=== PATIENT | female | born 1965 | race Caucasian/White ===

== ENCOUNTER 2024-10-26 15:43 | Inpatient (IN) | payer OTHER, SELFPAY ==
[2024-10-26 10:49] VITALS: BP 115/82
--- NOTE | 2024-10-26 12:03 | ED.GENMED ---
History of Present Illness
General
Chief Complaint: Change in Mental Status
Source: patient and family
Exam Limitations: other (dev delay)
Time Seen by Provider: 10/26/24 11:27
Nursing documentation reviewed up to this point in time: agreed with
History of Present Illness
History of Present Illness:
see MDM
Past History
Past History
ED Past Medical History: Seizures, Other (minimal brain development from ) and Other (Uterine fibroids, ovarian cysts)
Social History
Tobacco: Non-smoker
Alcohol: None
Personal: Single
Living: with family
Phy Exam
Physical Exam
Physical Exam:
GENERAL: Alert , in no apparent distress, developmental delay, inappropriate language,
EYE: pupils equal and reactive pupils are equal round and reactive, I do not appreciate any obvious nystagmus
NECK: Supple
ENT: o/p clr, dry mouth.
CARDIAC: Regular rate and rhythm .
LUNGS: Clear breath sounds bilaterally, no acute respiratory distress, no wheezes/rales/rhonchi
ABDOMEN: Soft, without focal tenderness, no r/g, no cvat, normal bowel sounds
NEUROLOGICAL: Alert and oriented x 1, she does know her sisters and is awake and alert, no focal neuro deficits, she has developmental delay but is able to follow commands, there is no cranial nerve deficits and she is moving all extremities. She
does walk with a slightly antalgic gait and is slightly ataxic, seemingly with a limp on the left but she is not at all weak
SKIN: Warm and dry, skin intact.
MUSCULOSKELETAL: Full range of motion of the hips without discomfort, nontender on exam, no midline tenderness
PSYCH: Developmental delay,
Course
Orders/Labs/Results
Orders:
Orders
10/26/24 11:57
CT Head W/o Iv Contrast Urgent
Comment:
Reason For Exam: change in mental status; h/o dev delay
Straight cath- Treatment ONCE
Urinalysis Reflex To Culture Urgent
Hip, Left 2-3 Views [CR Hip - LT w/wo Pel 2-3 Vw*] Urgent
Comment:
Reason For Exam: left hip pain
Include a pelvis x-ray?: Yes
10/26/24 12:07
Lumbar Spine Complete, 4 View [CR Lumbar Spine Comp Min 4 Vw*] Urgent
Comment:
Reason For Exam: limping, pain
10/26/24 12:17
Acetaminophen Urgent
Comment: TYLENOL ADDED ON BY FLOOR 1:15PM 10-26-24
Complete Blood Count/With Diff Urgent
Comprehensive Metabolic Panel Urgent
Keppra (Levetiracetam) [S] Urgent
Monotest Urgent
Comment: MONO ADDED ON BY FLOOR 1:40PM 10-26-24
Valproic Acid Level [Depakane] Urgent
10/26/24 13:12
Ammonia Urgent
0.9% Sodium Chloride 1000 ml [Nss] 1,000 ml IV BOLUS
US Abdomen Complete/Upper Urgent
Comment:
Reason For Exam: elev LFTs, dev delay; probably depakote tox
10/26/24 13:13
Add On- LAB Urgent
Tests Added?: tylenol level
10/26/24 13:40
Add On- LAB Urgent
Tests Added?: mono
10/26/24 14:52
PTT Urgent
Prothrombin Time Urgent
Abnormal Lab Results
10/26/24
12:17
Plt Count 81 L 10^3/uL
(130-400)
MPV 11.5 H fL
(7.4-10.4)
Abs Immat Gran (auto) 0.1 H 10^3/uL
(0-0.05)
Absolute Monos (auto) 0.8 H 10^3/uL
(0.1-0.6)
Immature Gran % 1.9 H %
(0-0.5)
Neutrophils % 30.4 L %
(42.2-75.2)
Lymphocytes % 53.3 H %
(20.5-51.1)
Monocytes % 13.3 H %
(1.7-9.3)
Carbon Dioxide 31 H mmol/L
(22-30)
BUN 23 H mg/dl
(7-17)
Glucose 113 H mg/dl
(70-99)
Total Bilirubin 1.4 H mg/dl
(0.2-1.3)
AST 750 H* U/L
(14-36)
ALT 738 H* U/L
(0-35)
Alkaline Phosphatase 329 H U/L
(38-126)
Acetaminophen < 10 L ug/ml
(10-30)
10/26/24 12:17
10/26/24 12:17
Vital Signs
Initial and Last Documented VS:
Initial Vital Signs
Temp Pulse Resp BP Pulse Ox
37.0 C 84 16 115/82 97
10/26/24 10:49 10/26/24 10:49 10/26/24 10:49 10/26/24 10:49 10/26/24 10:49
Last Documented Vital Signs
Temp Pulse Resp BP Pulse Ox
37.0 C 80 16 115/82 96
10/26/24 10:49 10/26/24 12:19 10/26/24 10:49 10/26/24 10:49 10/26/24 12:19
MDM/Problems Addressed
MDM/Problems Addressed:
Note:
CHIEF COMPLAINT(S)
Difficulty with mobility and changes in behavior.
HISTORY OF PRESENT ILLNESS
The patient is a female with a longstanding unspecified mental retardation since , managed under the care of a neurologist, Dr. Garcia, for 27 years, h/o epilepsy maintained on depakote and keppra. The familys main concern is a recent
exacerbation of symptoms related to mobility and behavior. On a recent visit to the neurologist for a routine check-up, it was observed that the patients hands exhibited increased tremors, prompting an adjustment in her Depakote (valproic acid)
dosage, which had been stable for many years.
The original dosage regimen was 500 mg in the morning, 250 in the afternoon, 250 mg at night. The neurologist increased the dosage to 2,000 mg per day�500 mg every morning, noon, and night dose starting around a week ago due to observed tremors. The
patient tolerated the new dosage for approximately two days, after which she exhibited excessive somnolence, significant difficulty in getting out of bed, changes in gait, and complaints of hip pain. Given these developments, the family adjusted the
dosage back to the previous regimen, which partially alleviated the excessive drowsiness but the mobility issues persisted.
Furthermore, the family reports that the patient has been restless at night and experienced an exacerbation in her urinary incontinence history, which was not previously prominent. She also has a prior history of hip issues diagnosed as arthritis
roughly six to seven years ago, for which she was given an anti-inflammatory.
Patient has not had any access to excess Depakote or Tylenol. She has not had any belly pain, fever or vomiting. She has not had any trauma
PAST MEDICAL AND SURGICAL HISTORY
- Unspecified mental retardation since .
- Seizures (formerly managed under neurologist care).
- Arthritis diagnosed in the hip around six to seven years ago.
CHRONIC MEDICAL CONDITIONS SIGNIFICANTLY AFFECTING CARE
- Seizure history managed with Depakote.
- Longstanding mental retardation influencing care management and decision-making.
SOCIAL DETERMINANTS AFFECTING HEALTH
- Patients mother has her own health conditions, adding stress to family caregiving dynamics.
MEDICATIONS
- Depakote (valproic acid): Previously 1,250 mg/day, temporarily increased to 2,000 mg/day, then reverted to 1,250 mg/day. Dosage transiently altered due to adverse effects of excessive sleepiness and altered mobility.
PHYSICAL EXAM
- Neurological assessment: Pupils checked; speech reportedly unchanged. Patient demonstrates difficulty with coordination�lowered ability to ambulate independently.
- Musculoskeletal: Complains of pain during hip mobilization, previously high tolerance noted.
- Observed behavior and responsiveness: Alert but significant changes noted in recent behavior as reported by the family. Nursing notes reviewed and vital signs reviewed.
PROBLEM LIST
Acute:
- Altered mental status likely secondary to medication adjustment.
- Mobility and gait disturbance.
- Behavioral changes.
Chronic:
- Unspecified mental retardation.
- Seizure disorder.
- Hip pain possibly due to arthritis.
PLAN
- Obtain urinalysis and culture to rule out urinary tract infection due to urinary symptoms.
- Bloodwork to check serum Depakote level and assess for acute changes in other parameters.
- Consider Pelvic CT scan to rule out possible structural issues contributing to hip pain.
- Proceed with head CT scan to evaluate neurological status further, as recommended by the family doctor considering potential stroke symptoms.
- Monitor mobility and reassess dosage adjustments of Depakote.
DIFFERENTIAL DIAGNOSIS
The Differential Diagnosis includes, in no particular order and is not limited to:
1. Adverse effect from medication adjustment.
2. Urinary tract infection.
3. Osteoarthritis flare.
4. Neurological condition or progression.
5. Stroke.
6. Medication withdrawal or toxicity.
7. Hypothyroidism.
8. Sleep disorder.
9. Frailty or deconditioning due to chronic illness.
10. Pain-related immobility or behavioral changes.
CARE-UPDATE
10/26/24 - 13:30
Patient has been experiencing increased sleepiness, difficulty walking, and confusion, likely due to elevated Depakote levels following a recent dosage increase. Liver enzymes are elevated, suggestive of Depakote toxicity, causing transient liver
dysfunction and contributing to confusion symptoms. A Tylenol level is to be checked to rule out accidental overdose. An ultrasound of the liver and gallbladder will be performed to exclude obstruction or infection. The patient will be admitted for
monitoring and supportive care, including the insertion of an IV line by the IV team. Depakote will be stopped, and neurology will be consulted for seizure management. The patient requires close observation, and arrangements are being discussed for
someone to stay with her during hospitalization. Further diagnostics and monitoring of medication levels such as Keppra will be conducted to finalize the treatment plan.
CARE-UPDATE
10/26/24 - 15:05
The patient is experiencing challenges with IV access and will require ultrasound guidance for successful placement. She appears dehydrated and has been allowed to consume clear liquids. Her current Depakote level is therapeutic, but recent
increased dosage could have previously elevated the levels, potentially causing temporary liver injuries and changes in mental status. Ultrasound did not show that she does have cholelithiasis without evidence of cholecystitis or
choledocholithiasis. I can suppose a working diagnosis could have been transient choledocholithiasis, but for now the patient does not have any signs of ascending cholangitis and we will hold on antibiotics. It will be important to trend the LFTs
to see if they are improving. A working diagnosis is still that the increase in Depakote has caused some liver toxicity.
A CT scan of her head showed enlarged ventricles, but this is consistent with her typical development, and there is no evidence of a stroke
She will still need a UA to rule out a UTI however we will need to straight catheter for that and it is very unlikely based on what else is going on that she would also have a UTI.
Admission to the hospital is recommended for continued monitoring and evaluation by a multidisciplinary team, including potential consultation with gastroenterology for the liver and gallbladder. It�s noted to avoid administering Ativan due to a
history of adverse reactions.
*Pulse Oximetry
SaO2: 97
Oxygen Mode of Delivery: Room air
Patient hypoxic: no
*Critical Care Note
Total Time (30-74mins, 75-104mins- exclusive of procedures): Not Applicable
ED Attending Note
-
Portions of this chart may have been created with voice recognition software.� Occasional wrong word or��sound alike� substitutions may have occurred due to the inherent limitations of voice recognition software.
Discharge Plan
Departure
Patient Disposition: Admit
Date of Disposition: 10/26/24
Time of Disposition: 14:46
Admit to: Telemetry
Presentation/result/management discussed w/ accepting MD/DO: Hospitalist
Condition: Fair
Covid-19: Not Applicable
Discharge Problem:
Transaminitis, depakote toxicity
Prescriptions:
No Action
divalproex 250 mg Tablet Extended Release 24 Hr
250 mg PO DAILY@1200
divalproex 250 mg Tablet,Delayed Release (Dr/Ec)
500 mg PO BID
cyanocobalamin (vitamin B-12) 1,000 mcg Tablet
1,000 mcg PO DAILY
Theragen Tablet
1 tab PO DAILY
levetiracetam [Keppra] 250 mg Tablet
250 mg PO BID
cholecalciferol (vitamin D3) [Vitamin D3] 25 mcg (1,000 unit) Capsule
25 mcg PO DAILY
rosuvastatin [Crestor] 40 mg Tablet
40 mg PO QPM
cinnamon bark [Cinnamon] 500 mg Capsule
500 mg PO DAILY
omega 6-lvu-pcd-fish oil [Fish Oil] 1,000 (120-180) mg Capsule
1 cap PO DAILY
coQ10 (ubiquinol) 100 mg Capsule
100 mg PO DAILY
acetaminophen [Tylenol] 325 mg Tablet
650 mg PO Q6HPRN PRN (Reason: mild pain)
Referrals:
Ira Grayson PA [Family Provider, Family Practice]
Discharge Date and Time
Print Language: LUX[place]GISH
[2024-10-26 12:18] VITALS: BMI 31.1
[2024-10-26 12:47] LABS: Hematocrit 42.3 % (37.0-47.0); Hemoglobin 14.1 g/dL (12.0-16.0); Mean Corp Hgb Conc. 33.3 g/dL (33.0-37.0); Mean Corpuscular Volume 87.9 fL (81.0-99.0); Red Cell Dist. Width 13.0 % (11.5-14.5)
[2024-10-26 12:59] LABS: ALT (SGPT) 738 U/L (0-35); Albumin 4.5 g/dl (3.5-5.0); Alkaline Phosphatase 329 U/L (38-126); Blood Urea Nitrogen 23 mg/dl (7-17); Calcium 9.6 mg/dl (8.4-10.2); Carbon Dioxide 31 mmol/L (22-30); Chloride 101 mmol/L (98-107); Estimated Creatinine Clearance 71 ml/min; Glucose 113 mg/dl (70-99); Potassium 3.9 mmol/L (3.5-5.1); Sodium 141 mmol/L (135-145); Total Protein 7.9 g/dl (6.3-8.2); eGFR > 60.00
[2024-10-26 13:09] LABS: Nucleated Red Blood Cells % 0 %; Platelet Count 81 10^3/uL (130-400)
[2024-10-26 13:14] LABS: Depakane 112.0 ug/ml (50.0-120.0)
[2024-10-26 13:25] LABS: AST (SGOT) 750 U/L (14-36)
[2024-10-26 13:35] LABS: Acetaminophen < 10 ug/ml (10-30)
[2024-10-26 15:14] LABS: INR 1.00; PT 13.7 Sec (11.4-14.6)
--- NOTE | 2024-10-26 15:14 | HPS.HSE ---
Family Physician
-
Family Physician: Ira Grayson
Chief Complaint
-
Changing mental status and behavior
History of Present Illness
HPI: 59-year-old female, past medical history of developmental mental delay, seizure disorder, presented with altered mental status since increase of her Depakote dose about 10 days ago [employer].
According to sisters at bedside, Depakote dose was increased by outpatient neurologist due to hand tremors. The patient sees neurologist from [place].
Since the increase of her Depakote, the patient first became more somnolent and lethargic (for about 3 days), then she became agitated and restless.
Medical History
Past Medical History
Past Medical History: Reports Other
Additional Past Medical History:
developmental delay,
seizure disorder,
Past Surgical History: Reports Other
Additional Past Surgical History:
wrist surgery in the distant past
Social History
Tobacco: Non-smoker
Alcohol: None
Living: With Family
Family History
Family History: Not pertinent
Allergies / Home Medications
Allergies reflects when Allergies were last updated in [facility].
Home Medications with original date entered in [facility]
Allergy/Medication List:
Allergies
Allergy/AdvReac Type Severity Reaction Status Date / Time
lorazepam (From Ativan) Allergy Pharmacy Verified 10/26/24 15:05
to Review
Home Medications
divalproex 250 mg tablet,extended release 24 hr 250 mg PO DAILY@1200 11/07/15
acetaminophen 325 mg tablet (Tylenol) 650 mg PO Q6HPRN PRN mild pain 10/26/24
cholecalciferol (vitamin D3) 25 mcg (1,000 unit) capsule (Vitamin D3) 25 mcg PO DAILY 10/26/24
cinnamon bark 500 mg capsule (Cinnamon) 500 mg PO DAILY 10/26/24
coQ10 (ubiquinol) 100 mg capsule 100 mg PO DAILY 10/26/24
cyanocobalamin (vitamin B-12) 1,000 mcg tablet 1,000 mcg PO DAILY 10/26/24
divalproex 250 mg tablet,delayed release 500 mg PO BID 10/26/24
levetiracetam 250 mg tablet (Keppra) 250 mg PO BID 10/26/24
omega 2-ymn-xtn-fish oil 1,000 mg (120 mg-180 mg) capsule (Fish Oil) 1 cap PO DAILY 10/26/24
rosuvastatin 40 mg tablet (Crestor) 40 mg PO QPM 10/26/24
therapeutic multivitamin 1 tab PO DAILY 10/26/24
Review of Systems
-
Unable to obtain full review of systems at this time due to: Other (Developmental delay)
Physical Exam
Vital Signs
Vital Signs
Temp Pulse Resp BP Pulse Ox
37.0 C 80 16 115/82 96
10/26/24 10:49 10/26/24 12:19 10/26/24 10:49 10/26/24 10:49 10/26/24 12:19
Physical Exam
General: Well Nourished, No Apparent Distress, Comfortable, Conversant and Appears Chronically Ill
HEENT: NormoCephalic, Moist mucous membranes and Atraumatic
Respiratory: Clear and Non Labored Respirations; No Accessory Resp Muscle Use
Cardiac: S1/S2 and Regular Rhythm; No Murmur or Rub
GI: Soft, Non Tender, Non Distended and Normal Bowel Sounds; No Organomegaly
Rectal: Deferred by Provider
Musculoskeletal: No Clubbing, No Cyanosis and No Edema
Skin: No Rash
Neuro: Awake
Psych: Calm; No Intact Judgment/Insight
Laboratory Results
-
10/26/24 12:17
10/26/24 12:17
Laboratory Results
Total Bilirubin 1.4 mg/dl (0.2-1.3) H 10/26/24 12:17
AST 750 U/L (14-36) H* 10/26/24 12:17
ALT 738 U/L (0-35) H* 10/26/24 12:17
Alkaline Phosphatase 329 U/L (38-126) H 10/26/24 12:17
Data Reviewed
-
Ultrasound: Report Reviewed by me
Lab Data: Labs Reviewed by me
Impression/Plan
-
HPI: 59-year-old female, past medical history of developmental mental delay, seizure disorder, presented with altered mental status since increase of her Depakote dose about 10 days ago [employer].
According to sisters at bedside, Depakote dose was increased by outpatient neurologist due to hand tremors. The patient sees neurologist from [place].
Since the increase of her Depakote, the patient first became more somnolent and lethargic (for about 3 days), then she became agitated and restless.
In the ER, patient was noted to be restless. Her LFT was noted to be elevated (AST ALT in the 700s), and platelet decreased at 80. Her Depakote level was at 112.
A/P:
# Acute toxic metabolic encephalopathy, concern for Depakote side effect
# Transaminitis, likely due to Depakote side effect
# Thrombocytopenia, likely due to Depakote side effect
Depakote level at 112 on admission
Monitor LFT, avoid hepatotoxic agent such as Tylenol and Crestor
Abd US: Cholelithiasis. No sonographic findings to suggest acute cholecystitis. No evidence for biliary ductal dilation.
Continue to trend platelet count
Neuro consult for Depakote recommendation
# History of seizure disorder
For now, continue Keppra
Follow Keppra level
Hold Depakote
Neuro consult
# Developmental delay
Patient is awake, not orientated
Monitor mood during hospital stay
DVT prophylaxis: Lovenox SQ
Full code
[2024-10-26 15:15] LABS: APTT 26.7 Sec (23.4-35.0)
[2024-10-26] MEDS: NSS 1000 IV (15:35)
--- NOTE | 2024-10-26 15:37 | CON.NEURO ---
Addendum entered and electronically signed by Kenneth Serra MD 10/26/24 16:30:
I reviewed lab results and CAT scan of the head results
Impressions: Change in mental status due to toxic metabolic encephalopathy
Recommendations:
Discontinue levetiracetam due to the possibility of agitation caused by that medication
Replace levetiracetam with brivaracetam 100 mg twice a day
Discontinue valproic acid due to elevated liver function testing
Follow valproic acid levels
Supportive care
No indication for EEG at this time
No indication for additional neuroimaging at this time
Will follow
Original Note:
Consultation
Order
Date of Consultation: 10/26/24
Requesting Provider: Hospitalists
Reason for Consult: Agitation
Subjective/Objective
Subjective Data
Date of Service: October 26, 2024
Unknown-Handed
Patient [facility] after [facility] after the patient had a worsening in mood. The patient reportedly began having generalized
tonic-clonic seizures at menarche (age 16) with her last seizure in 2014 at which time she experienced menopause. Patient reportedly has not had any auras or other events since that time. Reportedly her EEG however is described as abnormal in a
fashion which suggests she would benefit from continued antiseizure medications. The patient previously has utilized valproic acid for the last approximately 30 years, and in the past was exposed to carbamazepine as well as current medication
levetiracetam. Patient previously was advised that the goal for treatment would be eventually to discontinue valproic acid and instead have the patient utilize levetiracetam as monotherapy. When last evaluated by her outpatient neurologist, she
was found to have a tremor leading to an increase in the dosage of her valproic acid. This then led to a sense of agitation especially after 3 days of increased dosing. They were then advised to decrease the dosing by 500 mg which did not change
the patient's agitation and rizwana. As the patient remained manic, it was advised by her outpatient neurologist that she present to this hospital's emergency department.
The patient herself is a limited historian and history is obtained after review of the patient's medical records, discussion with her siblings who are at bedside, and with professional medical care providers.
Objective Data
Vital Signs
Temp Pulse Resp BP Pulse Ox
37.0 C 80 16 115/82 96
10/26/24 10:49 10/26/24 12:19 10/26/24 10:49 10/26/24 10:49 10/26/24 12:19
Lab Results
10/26/24 12:17
10/26/24 12:17
PT 13.7 Sec (11.4-14.6) 10/26/24 14:52
INR 1.00 10/26/24 14:52
APTT 26.7 Sec (23.4-35.0) 10/26/24 14:52
Sodium 141 mmol/L (135-145) 10/26/24 12:17
Potassium 3.9 mmol/L (3.5-5.1) 10/26/24 12:17
BUN 23 mg/dl (7-17) H 10/26/24 12:17
Glucose 113 mg/dl (70-99) H 10/26/24 12:17
Calcium 9.6 mg/dl (8.4-10.2) 10/26/24 12:17
Patient Allergies
lorazepam (From Ativan) Allergy (Verified 10/26/24 15:05)
Pharmacy to Review
Review of Systems
-
Unable to obtain full review of systems at this time due to: Other (Intellectual inability)
History Source: Patient
All other systems: Reviewed and negative
Neuro: Negative Dizzy or Headache
Physical Exam
-
General: No Apparent Distress and Appears Stated Age
Eyes: Able to visualize OU, Round OU, Parrott Conjunctivae and No Ptosis
HEENT: Anicteric and Moist Mucous Membranes
Neck: Full Range of Motion
Respiratory: No Dyspnea
Cardiac: No JVD
GI: Non-distended
Skin: Unremarkable
Extremities: No Clubbing, No Cyanosis and No Edema
Psych: Negative Intact Judgement/Insight
Extended Neurological Exam
Mood & Affect: Other (Mildly impulsive, continuously speaking)
Attention Span & Concentration: Awake, Alert, Interactive (Intermittently interactive and at times refusing examiners requests) and Other (Mild difficulty with single step requests due to inability to maintain activity)
Memory: Reduced (For recall of month and year as well as location) and Unable to Recall Personal History
Tremor: Hand Tremor Absent and Head Tremor Absent
Involuntary Movement: None
Speech: Quality Unremarkable and Mildly Reduced Output
Cranial Nerve II: Left Eye: Pupillary Reactivity Unremarkable, Pupillary Size Unremarkable and Visual Birch Grossly Intact
Cranial Nerve II: Right Eye: Pupillary Reactivity Unremarkable, Pupillary Size Unremarkable and Visual Birch Grossly Intact
Cranial Nerves III, IV, : Extraocular Movement: Grossly Intact
Cranial Nerve V: Facial Sensation: Unable to Assess
Cranial Nerve VII: Facial Symmetry: Normal Facial Symmetry
Cranial Nerve VIII: Hearing: Unremarkable Hearing to Normal Conversational Volume
Cranial Nerves IX, X: Palate Movement: Palate Elevation Symmetric
Cranial Nerve XI: Shoulder Shrug: Unremarkable
Cranial Nerve XII: Tongue Protusion: Midline
Muscle Strength, Overall: Full Throughout
Muscle Bulk & Tone: Bulk Unremarkable and Tone Unremarkable
Pronator Drift: Unable to Assess
Deep Tendon Reflexes: Trace Throughout
Cold Sensation: Unable to Assess
Vibration Sensation: Unable to Assess
Touch Sensation: Unremarkable
Coordination: Reaches for Objects without Difficulty
Babinski Sign: Absent Bilaterally
Gait & Station: Wide Based
Data Reviewed
-
Labs: Report Reviewed
Reviewed with: Physician, Patient and Family
Old Records: Summarized
Medications
-
Home Medications
�Medication �Instructions �Recorded
divalproex 250 mg tablet,extended 250 mg PO DAILY@1200 11/07/15
release 24 hr
acetaminophen 325 mg tablet 650 mg PO Q6HPRN PRN mild pain 10/26/24
(Tylenol)
cholecalciferol (vitamin D3) 25 25 mcg PO DAILY 10/26/24
mcg (1,000 unit) capsule (Vitamin
D3)
cinnamon bark 500 mg capsule 500 mg PO DAILY 10/26/24
(Cinnamon)
coQ10 (ubiquinol) 100 mg capsule 100 mg PO DAILY 10/26/24
cyanocobalamin (vitamin B-12) 1,000 mcg PO DAILY 10/26/24
1,000 mcg tablet
divalproex 250 mg tablet,delayed 500 mg PO BID 10/26/24
release
levetiracetam 250 mg tablet 250 mg PO BID 10/26/24
(Keppra)
omega 5-vsq-pyz-fish oil 1,000 mg 1 cap PO DAILY 10/26/24
(120 mg-180 mg) capsule (Fish Oil)
rosuvastatin 40 mg tablet (Crestor) 40 mg PO QPM 10/26/24
therapeutic multivitamin 1 tab PO DAILY 10/26/24
Past History
Past History
ED Past Medical History: Seizures (last 2014), Other (minimal brain development from ) and Other (Uterine fibroids, ovarian cysts)
Social History
Tobacco: Non-smoker
Alcohol: None
Personal: Single
Living: with family
[2024-10-26 16:01] LABS: Ammonia 23 umol/L (9-30)
[2024-10-26 17:07] VITALS: BP 157/75
[2024-10-26 17:44] VITALS: BMI 29.9
[2024-10-26] MEDS: BRIVIACT 100 MG IV (20:39)
[2024-10-26] MEDS: MOTRIN 200 MG PO (21:26)
[2024-10-26] MEDS: BENADRYL 25 MG PO (21:26)
[2024-10-26 23:08] VITALS: BP 146/71
[2024-10-27] MEDS: SENOKOT-S 1 TABLET PO ×2 (01:40→08:59)
[2024-10-27] MEDS: MOTRIN 200 MG PO (01:40)
[2024-10-27 07:13] VITALS: BP 141/74
[2024-10-27 07:39] LABS: Hematocrit 39.1 % (37.0-47.0); Hemoglobin 13.0 g/dL (12.0-16.0); Mean Corp Hgb Conc. 33.2 g/dL (33.0-37.0); Mean Corpuscular Volume 88.1 fL (81.0-99.0); Platelet Count 73 10^3/uL (130-400); Red Cell Dist. Width 13.3 % (11.5-14.5)
[2024-10-27 08:01] LABS: ALT (SGPT) 599 U/L (0-35); AST (SGOT) 485 U/L (14-36); Albumin 3.9 g/dl (3.5-5.0); Alkaline Phosphatase 291 U/L (38-126); Blood Urea Nitrogen 20 mg/dl (7-17); Calcium 9.3 mg/dl (8.4-10.2); Carbon Dioxide 31 mmol/L (22-30); Chloride 101 mmol/L (98-107); Estimated Creatinine Clearance 93 ml/min; Glucose 134 mg/dl (70-99); Magnesium 1.9 mg/dl (1.6-2.3); Potassium 4.4 mmol/L (3.5-5.1); Sodium 138 mmol/L (135-145); Total Protein 7.1 g/dl (6.3-8.2); eGFR > 60.00
[2024-10-27] MEDS: BRIVIACT 100 MG IV (08:41)
--- NOTE | 2024-10-27 09:50 | W.PN.NEURO.1 ---
Today's Communication / Plan
-
Discontinued levetiracetam due to the possibility of agitation caused by that medication
Replaced levetiracetam with brivaracetam 100 mg twice a day
Discontinued valproic acid due to elevated liver function testing
Follow valproic acid levels
Neuro Assessment/Plan
Assessment
Impressions: Change in mental status due to toxic metabolic encephalopathy
Plan
Discontinued levetiracetam due to the possibility of agitation caused by that medication
Replaced levetiracetam with brivaracetam 100 mg twice a day
Discontinued valproic acid due to elevated liver function testing
Follow valproic acid levels
No indication for EEG at this time
No indication for additional neuroimaging at this time
Will follow as needed. Patient to return to usual outpatient neurologist
Subjective/Objective
Subjective Data
Date of Service: October 27, 2024
Sleepy
Objective Data
Vital Signs
Temp Pulse Resp BP Pulse Ox
36.6 C 71 16 141/74 94
10/27/24 07:13 10/27/24 07:13 10/27/24 07:13 10/27/24 07:13 10/27/24 07:13
Lab Results
10/27/24 07:02
10/27/24 07:02
PT 13.7 Sec (11.4-14.6) 10/26/24 14:52
INR 1.00 10/26/24 14:52
APTT 26.7 Sec (23.4-35.0) 10/26/24 14:52
Sodium 138 mmol/L (135-145) 10/27/24 07:02
Potassium 4.4 mmol/L (3.5-5.1) 10/27/24 07:02
BUN 20 mg/dl (7-17) H 10/27/24 07:02
Glucose 134 mg/dl (70-99) H 10/27/24 07:02
Calcium 9.3 mg/dl (8.4-10.2) 10/27/24 07:02
Patient Allergies
lorazepam (From Ativan) Allergy (Verified 10/26/24 17:38)
'severe behavioral changes'
Review of Systems
-
Unable to obtain full review of systems at this time due to: Other (Intellectual disab)
History Source: Patient and Family
All other systems: Reviewed and negative
Neuro: Negative Dizzy or Headache
Physical Exam
-
General: No Apparent Distress and Appears Stated Age
Eyes: Round OU, Neal Conjunctivae and No Ptosis
HEENT: Anicteric and Moist Mucous Membranes
Neck: Full Range of Motion
Respiratory: No Dyspnea
Cardiac: No JVD
GI: Non-distended
Skin: Unremarkable
Extremities: No Clubbing, No Cyanosis and No Edema
Psych: Negative Intact Judgement/Insight
Extended Neurological Exam
Mood & Affect: Mood Unremarkable and Affect Unremarkable
Attention Span & Concentration: Awake, Alert and Interactive
Memory: Unable to Recall (Month or year) and Unable to Recall Personal History
Tremor: Hand Tremor Absent and Head Tremor Absent
Speech: Quantity Unremarkable; Negative Quality Unremarkable (Mildly thick)
Cranial Nerve II: Left Eye: Pupillary Size Unremarkable and Visual Birch Grossly Intact
Cranial Nerve II: Right Eye: Pupillary Size Unremarkable and Visual Birch Grossly Intact
Cranial Nerves III, IV, : Extraocular Movement: Grossly Intact
Cranial Nerve VII: Facial Symmetry: Normal Facial Symmetry
Cranial Nerve VIII: Hearing: Unremarkable Hearing to Normal Conversational Volume
Cranial Nerve XI: Shoulder Shrug: Unremarkable
Muscle Strength, Overall: Full in Upper Extremities
Muscle Bulk & Tone: Bulk Unremarkable and Tone Unremarkable
Pronator Drift: No Drift in Upper Extremities
Touch Sensation: Unremarkable
Coordination: Aakbbu-[id number] Testing Unremarkable
Past History
Past History
ED Past Medical History: Seizures (last 2014), Other (minimal brain development from ) and Other (Uterine fibroids, ovarian cysts)
Social History
Tobacco: Non-smoker
Alcohol: None
Personal: Single
Living: with family
Medications
-
Medications:
Generic Name Dose Route Start Last Admin
Trade Name Freq PRN Reason Stop Dose Admin
Bisacodyl 10 mg 10/26/24 17:37
Bisacodyl 10 Mg Rectal Suppository RECTAL 11/23/24 17:36
[id number] PRN
constipation
Brivaracetam 100 mg 10/26/24 20:00 10/27/24 08:41
Brivaracetam (10 Mg/Ml) 5 Ml Vial IV 11/09/24 19:59 100 mg
BID MEGAN Administration
Diphenhydramine HCl 25 mg 10/26/24 20:56 10/26/24 21:26
Diphenhydramine 25 Mg Capsule PO 11/23/24 20:55 25 mg
HSPRN PRN Administration
agitation/sleep
Ibuprofen 200 mg 10/26/24 20:47 10/27/24 01:40
Ibuprofen 200 Mg Tablet PO 11/23/24 20:46 200 mg
Q4HPRN PRN Administration
mod-severe pain
Ondansetron HCl 4 mg 10/26/24 17:37
Ondansetron 4 Mg/2 Ml Vial IV 11/23/24 17:36
Q6HPRN PRN
nausea and vomiting
Polyethylene Glycol 17 grams 10/26/24 17:37
Polyethylene Glycol Powder 17 Grams Packet PO 11/23/24 17:36
DAILYPRN PRN
constipation
Senna/Docusate Sodium 1 tablet 10/26/24 17:37 10/27/24 08:59
Docusate W/Senna (Bety-Colace) Tablet PO 11/23/24 17:36 1 tablet
BIDPRN PRN Administration
constipation
Sodium Chloride 0 flush 10/26/24 17:00
Sodium Chloride 0.9% (Flush) Syringe IV 11/23/24 16:59
PER PROTOCOL MEGAN
--- NOTE | 2024-10-27 12:36 | W.PN.HOSP.TC ---
Today's Communication/Plan
-
see A/P
Assessment / Plan
Assessment / Plan
HPI: 59-year-old female, past medical history of developmental mental delay, seizure disorder, presented with altered mental status since increase of her Depakote dose about 10 days ago [employer].
According to sisters at bedside, Depakote dose was increased by outpatient neurologist due to hand tremors. The patient sees neurologist from [place].
Since the increase of her Depakote, the patient first became more somnolent and lethargic (for about 3 days), then she became agitated and restless.
In the ER, patient was noted to be restless. Her LFT was noted to be elevated (AST ALT in the 700s), and platelet decreased at 80. Her Depakote level was at 112.
A/P:
# Acute toxic metabolic encephalopathy, concern for Depakote side effect
# Transaminitis, likely due to Depakote side effect
# Thrombocytopenia, likely due to Depakote side effect
Depakote level at 112 on admission
Monitor LFT, avoid hepatotoxic agent such as Tylenol and Crestor. Cont to monitor LFT outpt
Abd US: Cholelithiasis. No sonographic findings to suggest acute cholecystitis. No evidence for biliary ductal dilation.
Continue to trend platelet count
Appreciate Neuro input, discontinue levetiracetam due to the possibility of agitation caused by that medication, replace levetiracetam with brivaracetam 100 mg twice a day,
Discontinued valproic acid due to elevated liver function testing
# History of seizure disorder
See above
off valproic acid and Keppra,
Check repeat Valproic level outpt , script provided
Now on brivaracetam 100 mg twice a day
# Developmental delay
Patient is awake, not orientated
Monitor mood during hospital stay
DVT prophylaxis: Lovenox SQ
Full code
DW Neuro
DW sister at bedside
Anticipated Discharge: Today
Subjective/Interval History
-
Date of Service: October 27, 2024
Objective Data
-
Labs:
Laboratory Results
10/27/24
07:02
WBC 7.1
Hgb 13.0
Hct 39.1
Plt Count 73 L
Sodium 138
Potassium 4.4
Chloride 101
Carbon Dioxide 31 H
BUN 20 H
Creatinine 0.7
Glucose 134 H
Calcium 9.3
Total Bilirubin 1.7 H
AST 485 H
ALT 599 H*
Alkaline Phosphatase 291 H
Vital Signs:
Vital Signs
Temp Pulse Resp BP Pulse Ox
36.6 C 71 16 141/74 94
10/27/24 07:13 10/27/24 07:13 10/27/24 07:13 10/27/24 07:13 10/27/24 07:13
I&O
10/26/24 10/27/24 10/28/24
06:59 06:59 06:59
Intake Total 720 / 720
Balance 720 / 720
Review of Systems
-
Unable to obtain full review of systems at this time due to: Other (cognitive impairment)
Physical Exam
-
General: Well Nourished, No Apparent Distress, Comfortable and Conversant; Negative Respiratory Distress
HEENT: Normocephalic, Atraumatic, Nose Appears Normal and Ears Appear Normal; Negative Oxygen
Respiratory: Clear to Auscultation and Non Labored Respirations; Negative Accessory Resp Muscle Use
Cardiac: Regular Rhythm and S1/S2
GI: Soft, Nontender, Nondistended and Normal Bowel Sounds
Skin: Warm and Dry
Neuro: Awake
Psych: Other (cognitive impairment )
Data Reviewed
-
Labs: Labs Reviewed by me and Discussed with Family
--- NOTE | 2024-10-27 13:12 | CM ---
CM following re: discharge planning.
Reviewed pt's chart, met with pt and pt's sister Milli at bedside.
Pt is a 59 year old female, admitted with primary dx of cute toxic metabolic encephalopathy, concern for Depakote side effect. PMH: developmental mental delay, seizure disorder
Per sister Milli, pt lives with mother, father and a sister in a 2SH, 3 steps to enter, has 5 supportive siblings. Per sister, pt is independent with functional ability, enrolled with community outreach services with [facility], has ICM,
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
Pt stated she misses her cat and she wants to go home today.
Discharge order noted.
Both pt and her sister are aware, expressed their agreement and pt's sister stated she will transport her sister home. IMM reviewed, placed on chart, pt has a copy.
Pt referred to [facility]. [facility] liaison following and pt is accepted for services.
PCP: Ira Grayson
Pharmacy: [facility]
d/C plan: [facility] with [facility], resumptions of community outreach services from [facility] and family support. Sister to transport.
--- NOTE | 2024-10-27 13:16 | VNURNOTE ---
Home Health Liaison met with patient and sister at bedside to discuss [facility] nurse/therapy, visits, schedule and homebound status. Both are agreeable and understand that visits at home will be 2-3 x per week to assess and teach medical management.
Both are aware that [facility] will contact them for start of care in 1-2 days after discharge from . Sister requested that mom be contacted for visits- noted on referral.
[facility] referral completed in Care Port.
--- NOTE | 2024-10-27 16:14 | W.DCSUMMARY ---
Discharge Summary
Discharge Data
Date of Admission: 10/26/24
Date of Discharge: 10/27/24
Total time spent discharging patient (in min): 40
-
Pending Results: No
Hospital Course
Principal Diagnosis:
Confusion with agitation, concern for Depakote side effect.
Transaminitis and thrombocytopenia, likely due to Depakote side effect
Chronic Diagnoses:�
Seizure disorder
Developmental delay
Consultations:�
Neurology
Procedures:�
None
Clinical course:�
This is a 59-year-old female, with past medical history as stated above, who presented with agitation and restlessness.
According to her family, her Depakote dose was recently increased by her outpatient neurologist due to tremor in her hands.
She was first lethargic for about 3 days, then became agitated and restless.
Problem 1:
Confusion/acute toxic encephalopathy with agitation, concern for Depakote side effect.
This was associated with transaminitis and thrombocytopenia, due to Depakote side effect.
Her Depakote level was within normal limits at 112 on admission.
Her abdominal ultrasound was unrevealing, noted cholelithiasis.
Her LFT mildly improved while in the hospital (AST from 700-400, ALT from 700-500).
Her platelet was at 73k on the day of discharge.
She should check repeat LFT outpatient in 1 week, and hold Tylenol, Crestor and other supplements while awaiting for her LFT to normalize.
Her Depakote was discontinued.
Her Keppra was also discontinued due to the possibility of agitation caused by this medication.
She was started with brivaracetam 100 mg twice a day for antiepileptic, which she can continue going forward.
Problem 2:
Seizure disorder.
She was taken off valproic acid and Keppra, and was started with brivaracetam 100 mg twice a day.
As for the rest of her medical problems, they were stable during her hospital stay.
Discharge Plan
-
Patient Disposition: Home with Home Care
Discharge Diagnosis/Procedures: Confusion concern for Depakote side effect;
Transaminitis likely due to Depakote side effect;
Thrombocytopenia likely due to Depakote side effect
Condition: Fair
Diet: As tolerated
Activity: As tolerated
Driving Restrictions: As prior to admission
Blood Work: Depakote level
CMP in 1 week, result to PCP
Referrals:
Ira Grayson PA [Family Provider, Family Practice] - in less than 1 week
Additional Discharge Medication Instructions: Stop Keppra and Depakote.
Continue brivaracetam 100 mg twice a day.
Hold Tylenol, Crestor and your supplements until your liver enzymes return to normal
Prescriptions:
New
brivaracetam 100 mg tablet
100 mg PO BID Qty: 60 0RF
(DME) CMP
See Rx Instructions .Route .MEDSUPPLY Qty: 1 0RF
Rx Instructions:
within 1 week (10/30 to 11/03), result to your PCP
# transaminitis
(DME) depakote level
See Rx Instructions .Route .MEDSUPPLY Qty: 1 0RF
Rx Instructions:
within 1 week (10/30 to 11/03), result to your PCP
# confusion
Held
cyanocobalamin (vitamin B-12) 1,000 mcg Tablet
1,000 mcg PO DAILY
Hold Instructions: Resume on 11/10/24.
therapeutic multivitamin Tablet
1 tab PO DAILY
Hold Instructions: Resume on 11/10/24.
cholecalciferol (vitamin D3) [Vitamin D3] 25 mcg (1,000 unit) Capsule
25 mcg PO DAILY
Hold Instructions: Resume on 11/10/24.
rosuvastatin [Crestor] 40 mg Tablet
40 mg PO QPM
Hold Instructions: Resume on 11/10/24.
cinnamon bark [Cinnamon] 500 mg Capsule
500 mg PO DAILY
Hold Instructions: Resume on 11/10/24.
omega 0-yss-cuu-fish oil [Fish Oil] 1,000 (120-180) mg Capsule
1 cap PO DAILY
Hold Instructions: Resume on 11/10/24.
coQ10 (ubiquinol) 100 mg Capsule
100 mg PO DAILY
Hold Instructions: Resume on 11/10/24.
acetaminophen [Tylenol] 325 mg Tablet
650 mg PO Q6HPRN PRN (Reason: mild pain)
Hold Instructions: Resume on 11/10/24.
Discontinued
divalproex 250 mg Tablet Extended Release 24 Hr
250 mg PO DAILY@1200
divalproex 250 mg Tablet,Delayed Release (Dr/Ec)
500 mg PO BID
levetiracetam [Keppra] 250 mg Tablet
250 mg PO BID
Discharge Orders:
Discharge Patient (As Directed); Ordered 10/27/24
Ordered By: Bibiana Whatley
Discharge Date and Time
Discharge Date/Time: 10/27/24 13:53
Print Language: BELGIAN
== END 2024-10-27 13:53 | disposition home health service (06) | DRG 93 ==
LOC: 2 NORTH 15:43
PROVIDERS: Physician Assistant; ADMITTING PHYSICIAN Internal Medicine; CONSULT PHYSICIAN Psychiatry & Neurology Neurology; EMERGENCY PHYSICIAN Emergency Medicine; FAMILY PHYSICIAN Physician Assistant
DX: G92.8 Other toxic encephalopathy (principal); T42.6X5A Adverse effect of other antiepileptic and sedative-hypnotic drugs, initial encounter; K80.20 Calculus of gallbladder without cholecystitis without obstruction; G40.909 Epilepsy, unspecified, not intractable, without status epilepticus; F79 Unspecified intellectual disabilities; D69.59 Other secondary thrombocytopenia; Z74.09 Other reduced mobility; R74.01 Elevation of levels of liver transaminase levels; Z88.8 Allergy status to other drugs, medicaments and biological substances; Z79.899 Other long term (current) drug therapy
CPT/HCPCS: 70450; 72110; 73502; 76700; 80053; 80143; 80164; 80177; 82140; 83735; 85025; 85027; 85610; 85730; 86308; 96360; 99285

== ENCOUNTER 2024-11-03 03:04 | Inpatient (IN) | payer OTHER, SELFPAY ==
[2024-11-02 19:59] VITALS: BP 99/72
[2024-11-02 22:17] VITALS: BMI 30.3
--- NOTE | 2024-11-02 22:31 | ED.GENMED ---
History of Present Illness
General
Chief Complaint: Medication Reaction
Source: patient, family and previous hospital records
Time Seen by Provider: 11/02/24 22:06
History of Present Illness
History of Present Illness:
59-year-old female with past medical history of developmental delay and seizure disorder presenting back to the emergency department at the request of primary care provider for worsening outpatient labs after patient was recently admitted here with
a diagnosis of suspected Depakote toxicity. Patient had abnormal LFTs at the time of her admission and at time of discharge and her brother who is here with her states that they got a call from the primary care provider today stating that the AST
and elevated ALT were significantly more elevated and that her bilirubin was over 6. Brother endorses jaundice to the head and neck area. Patient endorses fatigue and some nausea. Currently patient denies any abdominal pain or vomiting. They
note that patient was discontinued off of her Depakote and she has not taken any since
Past History
Past History
ED Past Medical History: Seizures (last 2014), Other (minimal brain development from ) and Other (Uterine fibroids, ovarian cysts)
Social History
Tobacco: Non-smoker
Alcohol: None
Drug: None
Personal: Single
Living: with family
Phy Exam
Physical Exam
Physical Exam:
GENERAL: Alert , in no apparent distress
HEAD: Normocephalic atraumatic
EYE: Icteric sclera
NECK: Supple
ENT: o/p clr, mmm.
CARDIAC: Regular rate and rhythm
LUNGS: Clear breath sounds bilaterally, no acute respiratory distress, no wheezes/rales/rhonchi
ABDOMEN: Soft, nontender, nondistended
NEUROLOGICAL: Alert and oriented
SKIN: Warm and dry, skin intact. Jaundiced to head and neck
MUSCULOSKELETAL: well perfused.
PSYCH: Normal and appropriate interaction.
Scores
Heart Failure Risk
Heart Failure Risk Score: Not Applicable
Heart Score for Chest Pain Patients
STEMI patient?: Not applicable
Withdrawal Assessment of Alcohol
Withdrawal Assessment Completed?: Not applicable
Course
Orders/Labs/Results
Orders:
Orders
11/02/24 22:16
0.9% Sodium Chloride 1000 ml [Nss] 1,000 ml IV BOLUS
11/02/24 22:31
Ammonia Urgent
Complete Blood Count/With Diff Urgent
Depakane Urgent
Manual Differential Urgent
PTT Urgent
Prothrombin Time Urgent
11/02/24 22:47
Acetaminophen Urgent
Comprehensive Metabolic Panel Urgent
Lipase Urgent
11/03/24 00:37
CT Abd/pelvis W Iv Cont Urgent
Comment:
Reason For Exam: liver failure, ? CBD stone
Abnormal Lab Results
11/02/24 11/03/24
22:31 00:00
WBC 15.3 H 10^3/uL
(4.8-10.8)
RBC 4.14 L 10^6/uL
(4.20-5.40)
Hct 34.1 L %
(37.0-47.0)
RDW 15.5 H %
(11.5-14.5)
Sodium 134 L mmol/L
(135-145)
Glucose 100 H mg/dl
(70-99)
Total Bilirubin 6.5 H mg/dl
(0.2-1.3)
AST 435 H U/L
(14-36)
ALT 645 H* U/L
(0-35)
Alkaline Phosphatase 829 H U/L
(38-126)
Ammonia 34 H umol/L
(9-30)
Acetaminophen < 10 L ug/ml
(10-30)
Valproic Acid < 10.0 L ug/ml
(50.0-120.0)
11/02/24 22:31
11/03/24 00:00
Vital Signs
Initial and Last Documented VS:
Initial Vital Signs
Temp Pulse Resp BP Pulse Ox
97.9 F 92 18 99/72 99
11/02/24 19:59 11/02/24 19:59 11/02/24 19:59 11/02/24 19:59 11/02/24 19:59
Last Documented Vital Signs
Temp Pulse Resp BP Pulse Ox
97.9 F 92 18 110/91 97
11/02/24 19:59 11/02/24 19:59 11/02/24 19:59 11/03/24 00:02 11/03/24 00:45
MDM/Problems Addressed
Differential Diagnosis Includes:
Worsening liver disease secondary to recent Depakote toxicity
Less concern for cholangitis/cholecystitis given lack of pain or fevers
Mass/malignancy
Patient does not drink alcohol so no concern for alcohol induced cirrhosis/liver failure
VALERO
infectious hepatitis
MDM/Problems Addressed:
59-year-old female presenting back to the emergency department requesting primary care provider for worsening liver function test. Patient admitted to the hospital last week with diagnosis of suspected Depakote toxicity and had this medication
discontinued. Will recheck liver function tests and labs here. On ultrasound done on October 26 patient did have cholelithiasis but no evidence for acute cholecystitis or biliary ductal dilatation. Given lack of other symptoms we will hold on
imaging at this time
*Radiology
Radiology exam reviewed: radiology read reviewed
*Pulse Oximetry
SaO2: 99
Oxygen Mode of Delivery: Room air
Patient hypoxic: no
*Critical Care Note
Total Time (30-74mins, 75-104mins- exclusive of procedures): Not Applicable
Data Reviewed
Review of Other/Old Records Reveals: Labs, Records and Radiology Studies
Patient Management
Discussion with other providers: Hospitalist, Care Professionals and Radiologist
Escalation/DeEscalation of care consider admission/obs:
I was informed by radiology that patient CT scan shows numerous gallstones near the gallbladder neck with prominent gallbladder wall thickening. Given the patient's significantly worsening liver function tests possibility for cholecystitis is much
more likely. Will cover with Alvina. I notified general surgery who can see the patient in consult as well as hospitalist team who accepts for admission. Patient continues to states she is not currently in any pain and currently has no nausea.
ED Attending Note
-
Portions of this chart may have been created with voice recognition software.� Occasional wrong word or��sound alike� substitutions may have occurred due to the inherent limitations of voice recognition software.
Discharge Plan
Departure
Patient Disposition: Admit
Date of Disposition: 11/03/24
Time of Disposition: 02:07
Presentation/result/management discussed w/ accepting MD/DO: Hospitalist
Discharge Problem:
Cholelithiasis, Transaminitis
Prescriptions:
No Action
cyanocobalamin (vitamin B-12) 1,000 mcg Tablet
1,000 mcg PO DAILY
therapeutic multivitamin Tablet
1 tab PO DAILY
cholecalciferol (vitamin D3) [Vitamin D3] 25 mcg (1,000 unit) Capsule
25 mcg PO DAILY
rosuvastatin [Crestor] 40 mg Tablet
40 mg PO QPM
cinnamon bark [Cinnamon] 500 mg Capsule
500 mg PO DAILY
omega 1-cen-vnq-fish oil [Fish Oil] 1,000 (120-180) mg Capsule
1 cap PO DAILY
coQ10 (ubiquinol) 100 mg Capsule
100 mg PO DAILY
acetaminophen [Tylenol] 325 mg Tablet
650 mg PO Q6HPRN PRN (Reason: mild pain)
brivaracetam 100 mg tablet
100 mg PO BID Qty: 60 0RF
(DME) CMP
See Rx Instructions .Route .MEDSUPPLY Qty: 1 0RF
Rx Instructions:
within 1 week (10/30 to 11/03), result to your PCP
# transaminitis
(DME) depakote level
See Rx Instructions .Route .MEDSUPPLY Qty: 1 0RF
Rx Instructions:
within 1 week (10/30 to 11/03), result to your PCP
# confusion
Referrals:
Ira Grayson PA [Family Provider, Family Practice]
Interventions
Interventions:
*Risk Screen - Suicide Last Done: 11/02/24 19:59
*General Assessment Last Done: 11/02/24 19:59
*ED- Fall Risk Assessment Last Done: 11/02/24 22:18
*ED COVID-19 Vaccine History Last Done: 11/02/24 22:18
ED-Skin Assessment Last Done: 11/02/24 22:18
ED- Pulmonary Assessment Last Done: 11/02/24 22:18
ED-EENT Assessment Last Done: 11/02/24 22:18
Discharge Date and Time
Print Language: SYRIAC
[2024-11-02] MEDS: NSS 1000 IV (22:42)
[2024-11-02 22:43] VITALS: BP 117/69
[2024-11-02 22:46] LABS: Hematocrit 34.1 % (37.0-47.0); Hemoglobin 12.0 g/dL (12.0-16.0); Mean Corp Hgb Conc. 35.2 g/dL (33.0-37.0); Mean Corpuscular Volume 82.4 fL (81.0-99.0); Platelet Count 245 10^3/uL (130-400); Red Cell Dist. Width 15.5 % (11.5-14.5)
[2024-11-02 22:50] LABS: INR 0.93; PT 13.0 Sec (11.4-14.6)
[2024-11-02 22:51] LABS: APTT 28.3 Sec (23.4-35.0)
[2024-11-02 22:54] LABS: Depakane < 10.0 ug/ml (50.0-120.0)
[2024-11-02 23:00] VITALS: BP 123/57
[2024-11-02 23:07] LABS: Ammonia 34 umol/L (9-30)
[2024-11-02 23:28] LABS: Normal RBC Morphology No; Platelets Checked Yes
[2024-11-02 23:30] LABS: Total Cells Counted 100
[2024-11-03] VITALS (18 sets, daily range): BP systolic 110–182; BP diastolic 55–91; BMI 28.7
[2024-11-03 00:33] LABS: ALT (SGPT) 645 U/L (0-35); AST (SGOT) 435 U/L (14-36); Acetaminophen < 10 ug/ml (10-30); Albumin 3.5 g/dl (3.5-5.0); Alkaline Phosphatase 829 U/L (38-126); Blood Urea Nitrogen 16 mg/dl (7-17); Calcium 8.6 mg/dl (8.4-10.2); Carbon Dioxide 27 mmol/L (22-30); Chloride 102 mmol/L (98-107); Estimated Creatinine Clearance 94 ml/min; Glucose 100 mg/dl (70-99); Lipase 236 U/L (23-300); Potassium 3.9 mmol/L (3.5-5.1); Sodium 134 mmol/L (135-145); Total Protein 6.9 g/dl (6.3-8.2); eGFR > 60.00
--- NOTE | 2024-11-03 02:20 | HPS.HSE ---
Family Physician
-
Family Physician: Ira Grayson
Chief Complaint
-
Elevated liver enzymes
History of Present Illness
This is a 59-year-old with intellectual developmental delay and history of a seizure disorder on antiepileptic drug who presents to the emergency department after outpatient labs revealed increasing bilirubin and LFTs.
Patient was recently admitted and discharged on October 26. At that time he had transaminitis which was associated with some altered mental status. This was felt secondary to Depakote toxicity. She has been weaned off Depakote since then and
started on brivaracetam. Due to intellectual developmental delay patient is unable to verbalize wants and family reports she has high pain tolerance. She did mention that she has been having abdominal discomfort for several days now without
vomiting diarrhea fevers or chills. She denies any urinary symptoms. She had a follow-up blood test today which showed increasing LFTs and she was sent to the emergency department for evaluation. Family reported jaundice.
During last admission she had gallstones on imaging but no pathological effects suspected at the time.
In ED today she has been afebrile, BP 110/0, p92, RR 18. She has WBC of 15.3 with otherwise normal CBC. Electrolytes, BUN/Cr are normal. Tbili is now 6.5 with AST 430, ALT 645, AP 829. Lipase remains normal. CT of the abdomen and pelvis shows
numerous gallstones up to the mid gallbladder neck with prominent gallbladder wall thickening.
Medical History
Past Medical History
Past Medical History: Reports Other
Additional Past Medical History:
developmental delay,
seizure disorder,
Past Surgical History: Reports Other
Additional Past Surgical History:
wrist surgery in the distant past
Social History
Tobacco: Non-smoker
Alcohol: None
Living: With Family
Family History
Family History: Not pertinent
Allergies / Home Medications
Allergies reflects when Allergies were last updated in [email or web address].
Home Medications with original date entered in [email or web address]
Allergy/Medication List:
Allergies
Allergy/AdvReac Type Severity Reaction Status Date / Time
lorazepam (From Ativan) Allergy Pharmacy Verified 10/26/24 15:05
to Review
Home Medications
divalproex 250 mg tablet,extended release 24 hr 250 mg PO DAILY@1200 11/07/15
acetaminophen 325 mg tablet (Tylenol) 650 mg PO Q6HPRN PRN mild pain 10/26/24
cholecalciferol (vitamin D3) 25 mcg (1,000 unit) capsule (Vitamin D3) 25 mcg PO DAILY 10/26/24
cinnamon bark 500 mg capsule (Cinnamon) 500 mg PO DAILY 10/26/24
coQ10 (ubiquinol) 100 mg capsule 100 mg PO DAILY 10/26/24
cyanocobalamin (vitamin B-12) 1,000 mcg tablet 1,000 mcg PO DAILY 10/26/24
divalproex 250 mg tablet,delayed release 500 mg PO BID 10/26/24
levetiracetam 250 mg tablet (Keppra) 250 mg PO BID 10/26/24
omega 6-arq-erh-fish oil 1,000 mg (120 mg-180 mg) capsule (Fish Oil) 1 cap PO DAILY 10/26/24
rosuvastatin 40 mg tablet (Crestor) 40 mg PO QPM 10/26/24
therapeutic multivitamin 1 tab PO DAILY 10/26/24
Review of Systems
-
Unable to obtain full review of systems at this time due to: Other (Developmental delay)
Physical Exam
Vital Signs
Vital Signs
Temp Pulse Resp BP Pulse Ox
97.9 F 92 18 110/91 97
11/02/24 19:59 11/02/24 19:59 11/02/24 19:59 11/03/24 00:02 11/03/24 00:45
Physical Exam
General: Well Nourished, No Apparent Distress, Comfortable, Conversant and Appears Chronically Ill
HEENT: NormoCephalic, Moist mucous membranes and Atraumatic
Respiratory: Clear and Non Labored Respirations; No Accessory Resp Muscle Use
Cardiac: S1/S2 and Regular Rhythm; No Murmur or Rub
GI: Soft, Non Tender, Non Distended and Normal Bowel Sounds; No Organomegaly
Rectal: Deferred by Provider
Musculoskeletal: No Clubbing, No Cyanosis and No Edema
Skin: Jaundice; No Rash
Neuro: Awake
Psych: Calm; No Intact Judgment/Insight
Laboratory Results
-
11/02/24 22:31
11/03/24 00:00
Laboratory Results
PT 13.0 Sec (11.4-14.6) 11/02/24:
INR 0.93 11/02/24:
APTT 28.3 Sec (23.4-35.0) 11/02/24:
Total Bilirubin 6.5 mg/dl (0.2-1.3) H 11/03/24 00:00
AST 435 U/L (14-36) H 11/03/24 00:00
ALT 645 U/L (0-35) H* 11/03/24 00:00
Alkaline Phosphatase 829 U/L (38-126) H 11/03/24 00:00
Lipase 236 U/L (23-300) 11/03/24 00:00
Data Reviewed
-
CT Scan: Report Reviewed by me
Lab Data: Labs Reviewed by me
Old Records: Reviewed
Impression/Plan
-
IMPRESSION:
Patient with h/o seizures who was recently admitted for MS changes and LFT anomalies thought 2/2 depakote toxicity having stopped depakote on 10/26 now coming in with worsening LFTs. Tbili of 6.5, Increasing transamintis with normal Lipase. INR is
normal. NH3 level is slightly increased. Imaging shows cholelithiasis with possible cholecystitis. Cannot rule out cholangitis but patient shows no systemic signs of infection. Preliminary CT report did not comment on ductal dilation (likely not
seen). Overal picture is c/w biliary colic/cholelithiasis vs cholecystitis. Unlikely this is secondary to ongoing depakote toxicity as liver biochemical abnormalities usually comes to resolve following VPA discontinuation and the levels at the
time of discontinuation was therapeutic at 112 but not toxic. Patient with TTP to palpation but not brooke sign.
PLAN:
1. Cholestasis vs acute cholecystitis
- admit to med/surg
- npo
- continue IV zosyn given recent hospital admission
- trend lfts
- mrcp
- GI consultation
- surgery notified and consulted.
2. Seizure d/o
- continue brivaracetam
DVT PPX - lovenox sq
Code status - Full Code
[2024-11-03] MEDS: ZOSYN 100 IV (03:13)
[2024-11-03 05:20] LABS: Absolute Neutrophils -Man Diff 2.6 10^3/uL (1.4-6.5)
[2024-11-03 05:21] LABS: Anisocytosis 1+
[2024-11-03 05:22] LABS: Hypochromasia 1+; Polychromasia 1+; Smudge Cells 1+; Stomatocytes 1+; Target Cells 3+
[2024-11-03] MEDS: D5/0.9% SODIUM CHLORIDE 1000 IV (05:33)
[2024-11-03 06:36] LABS: Hematocrit 32.8 % (37.0-47.0); Hemoglobin 11.0 g/dL (12.0-16.0); Mean Corp Hgb Conc. 33.5 g/dL (33.0-37.0); Mean Corpuscular Volume 84.8 fL (81.0-99.0); Platelet Count 261 10^3/uL (130-400); Red Cell Dist. Width 15.7 % (11.5-14.5)
[2024-11-03 06:48] LABS: Ammonia 36 umol/L (9-30)
[2024-11-03 06:55] LABS: Blood Urea Nitrogen 11 mg/dl (7-17); Calcium 8.6 mg/dl (8.4-10.2); Carbon Dioxide 26 mmol/L (22-30); Chloride 104 mmol/L (98-107); Estimated Creatinine Clearance 94 ml/min; Glucose 115 mg/dl (70-99); Magnesium 2.0 mg/dl (1.6-2.3); Potassium 4.1 mmol/L (3.5-5.1); Sodium 135 mmol/L (135-145); eGFR > 60.00
--- NOTE | 2024-11-03 07:50 | PTCARENOTE ---
@0750 patient arrived on stretcher with mother and sister at side. IV fluids infusing. Pt ambulated to standing scale and to bed. Vital signs are stable.
--- NOTE | 2024-11-03 08:26 | CON.GS ---
Addendum entered and electronically signed by Jamal Calloway MD 11/03/24 16:11:
MRI concerning for severe Rossana cystitis without evidence of choledocholithiasis. Case has been reviewed with hospitalist and GI. Alternative sources were ruled out. Most likely severe chronic cholecystitis over the past 3 to 4 weeks. Options
for management were reviewed with the family. Specifically, we discussed decompression with cholecystostomy tube versus surgical management with cholecystectomy. We discussed potential for increased operative risks given the delay in her
presentation and severity of her cholecystitis. We discussed the potential need for an open procedure or subtotal cholecystectomy with drain placement. Plan for a laparoscopic possible open cholecystectomy possible subtotal cholecystectomy
possible cholangiogram. The procedure itself, as well as the risks, benefits, and alternatives was discussed. Specifically, we discussed the risks of bleeding, infection, injury to surrounding structures (bowel, bile ducts), wound complications,
anesthetic complications. Typical postprocedure recovery was discussed. Specifically, we discussed the need for hospitalization, antibiotics, drain placement, and possible ERCP. All questions answered. Consent signed.
Addendum entered and electronically signed by Jamal Calloway MD 11/03/24 09:55:
Patient seen and examined.
Patient is a 59 yo M with a PMH of seizure disorder and intellectual disability who presents with abdominal discomfort in the setting of outpatient labs demonstrating rising bilirubin, LFTs, and ammonia. Her mother and sister are at bedside
providing history. They note that about 3 weeks ago, her Neurologist noted that her hands were tremulous and increased her Depakote dosing. She became restless with behavioral changes and presented for evaluation prompting admission 10/26-10/27 with
noted transaminitis and mildly elevated bilirubin at that time thought to be secondary to Depakote toxicity. She was transitioned off Depakote to Brivaracetam by Neurology with outpatient trending of LFTs. She also stopped her statin. Her family
notes that during this past few weeks she has been restless and intermittently complaining of abdominal pain usually to the upper abdomen. She has had a poor appetite which is different from baseline. She has not complained of nausea or had
vomiting. She has not had bowel changes that her family is aware of but she toilets herself so it is unclear. Today, she is calm and denies active pain. On exam, she has no abdominal tenderness or distention.
Gen: NAD
Abd: soft, obese, NT, negative Sheridan's sign, ND, non-peritoneal
Labs and imaging were reviewed
Patient is a 59 yo F p/w abdominal pain in the setting of elevated bilirubin, LFTs, and ammonia
CT scan imaging demonstrates a more shrunken gallbladder with likely reactive wall thickening and edema from either a primary hepatic or adjacent source. No significant fat stranding or surrounding inflammation. She does have stones that appear to
be within the neck of the gallbladder. Differential includes acute on chronic cholecystitis, choledocholithiasis, or primary liver pathology. The degree of elevation and continued rise in her bilirubin, LFTs, and recently found elevation in her
ammonia does raise concern for an alternative hepatobiliary pathology separate from her gallbladder. Certainly possible that this could all be medication related, however, she has been transitioned off of medications that would cause
hepatotoxicity. Additionally, her family does provide history of what sounds like asterixis prior to her changes Depakote levels indicating that her underlying pathology could have been present prior to any medication changes. Recommend continued
workup and ruling out alternative causes for her symptoms prior to proceeding with gallbladder removal. GI consult noted. MRI pending. Will need to discuss her case with primary and GI service.
-- MRI abdomen
-- GI consult
-- Trend labs
-- Abx: Zosyn
-- NPO, IVF for now
Original Note:
Consultation
-
Date/Time Consultation Performed: 11/03/24 7577
Medical History
-
Chief Complaint: abdominal pain
History of Present Illness:
Ms Gallardo is a 59 yo female with h/o seizure disorder and intellectual disability who presents for abnormal LFT's. Her mother and sister are at bedside providing history. They note that about 3 weeks ago, her neurologist noted that her hands were
tremulous and increased her Depakote dosing. She became restless with behavioral changes and presented for evaluation prompting admission 10/26-10/27 with noted transaminitis and mildly elevated bilirubin at that time thought to be secondary to
Depakote toxicity. She was transitioned off Depakote to brivaracetam by neurology with outpatient trending of LFTs. Her family notes that during this past few weeks she has been restless and intermittently complaining of abdominal pain usually to
the upper abdomen. She has had a poor appetite which is different from baseline. She has not complained of nausea or had vomiting. She has not had bowel changes that her family is aware of but she toilets herself so it is unclear. Today, she is calm
and denies active pain. On exam, she has no abdominal tenderness or distention.
Past Medical History
Past Medical History: Seizures and Other (intellectual disability)
Past Surgical History: None
Social History
Tobacco: Non-Smoker
Alcohol: None
Living: With Family (home health services)
Family History
Family History: Reviewed & Not Pertinent
Allergies / Home Medications
Allergy/AdvReac Type Severity Reaction Status Date / Time
lorazepam (From Ativan) Allergy 'severe Verified 11/03/24 03:05
behavioral
changes'
�Medication �Instructions �Recorded �Confirmed �Type
brivaracetam 100 mg tablet 100 mg PO BID 11/03/24 11/03/24 History
Review of Systems
-
History Source: Patient and Family
All other systems: Negative unless noted
A 10 point review of systems was completed, and was negative except as per HPI.
Physical Exam
Vital Signs
Temp Pulse Resp BP Pulse Ox
97.9 F 80 18 124/73 95
11/02/24 19:59 11/03/24 04:00 11/02/24 19:59 11/03/24 04:00 11/03/24 06:00
11/02/24 11/03/24 11/04/24
06:59 06:59 06:59
Actual Weight 78.335 kg
Body Mass Index (BMI) 28.7
Lab Results
11/03/24 05:40
11/03/24 05:40
WBC 13.5 10^3/uL (4.8-10.8) H 11/03/24 05:40
Hgb 11.0 g/dL (12.0-16.0) L 11/03/24 05:40
Hct 32.8 % (37.0-47.0) L 11/03/24 05:40
Plt Count 261 10^3/uL (130-400) 11/03/24 05:40
Physical Exam
General: Well Developed, Well Nourished, No Apparent Distress and Comfortable
HEENT: Moist Mucous Membranes
GI: Soft, Non Tender and Non Distended
Skin: Warm and Dry
Neuro: Awake, Alert and AO x 3
Psych: Calm
Data Reviewed
-
CT Scan: Image Personally Visualized and interpreted, Report Reviewed by me, Discussed with Physician, Discussed with Patient and Discussed with Family
Labs: Labs Reviewed by me, Discussed with Physician, Discussed with Patient and Discussed with Family
Old Records: Reviewed
Assessment / Plan
-
59 yo female with h/o seizure disorder and intellectual disability with recent seizure medication changes d/t ?Depakote toxicity (admit 10/26- for the same) who presents with behavioral changes and intermittent abdominal pain with anorexia from
home. Transaminitis present but mildly improved from prior. Bilirubin significantly elevated on presentation to 6.5 although trended down to 5.7 today. Lipase is normal. Ammonia level is elevated. INR WNL. Na mildly decreased to 134 on presentation
but now normal. Leukocytosis present on admission but trending down on ABX. (15.2-13.5). US imaging with cholelithiasis without evidence of acute cholecystitis. CT imaging with chronic appearing GB wall thickening without pericholecystic
inflammation or gallbladder distention. Doubt acute cholecystitis, but choledocholithiasis does remain in the differential. Nontender currently on exam. AFVSS.
Plan:
MRCP pending to further evaluate
GI to evaluate for liver work up
NPO for testing
ABX until work up for GB pathology completed
--- NOTE | 2024-11-03 08:32 | VNURNOTE ---
Addendum entered by Ramandeep Lambert RN 11/03/24 11:49:
Resumption referral placed in [facility] for [facility].
Original Note:
Chart reviewed. Patient is current with [facility]. Will continue to follow hospital course and DC plans.
[2024-11-03 09:16] LABS: ALT (SGPT) 614 U/L (0-35); AST (SGOT) 351 U/L (14-36); Albumin 3.4 g/dl (3.5-5.0); Alkaline Phosphatase 741 U/L (38-126); Total Protein 6.5 g/dl (6.3-8.2)
[2024-11-03] MEDS: BRIVIACT 100 MG PO ×2 (09:32→21:55)
--- NOTE | 2024-11-03 10:12 | CM ---
CM following re: discharge planning.
Reviewed pt's chart, met with. Pt's mother and sister at bedside.
Pt is a 59 year old female, admitted with primary dx of Cholestasis vs acute cholecystitis PMH: developmental mental delay, seizure disorder
Pt is well know to this CM from previous admission a week ago, lives with mother, father and a sister in a 2SH, 3 steps to enter, has 5 supportive siblings. Per sister, pt is independent with functional ability, enrolled with community outreach
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
Pt is [facility] with [facility].
Pt stated she misses her cat and pt was assured by her mother and sister that her cat is taking care and is awaiting for her to come home healthy. Pt responded with a smile.
PCP: Ira Grayson
Pharmacy: [facility]
D/C plan: home with resumptions of [facility], resumptions of community outreach services from [facility] and family support. Sister to transport.
CM will follow with discharge plan updates as hospitalization progresses
[2024-11-03] MEDS: VALIUM INJECTION 2 MG IV (10:55)
--- NOTE | 2024-11-03 11:11 | CON.GI ---
Addendum entered and electronically signed by Matteo Vásquez MD 11/03/24 13:51:
Patient seen and examined, agree with nurse practitioner note. The patient is a 59-year-old female with past medical history as noted who presents with increasing LFTs. She had recent admission for behavioral changes and agitation which was
thought to be from Depakote toxicity with elevated Depakote levels. She was found to have elevated LFTs at that time which were her predominant necroinflammatory pattern. Depakote and her statin were stopped. She now had outpatient labs that
showed increasing bilirubin and came back to the emergency room. This time she has significant leukocytosis, which were mostly lymphocytes but also significant bandemia. CT scan showed multiple gallstones and gallbladder wall thickening with wall
edema without duct dilation. Ultrasound on the did not show any significant gallbladder wall thickening. By report at home she was having abdominal discomfort, usually about an hour after eating. Her mom would place a heating pad on her
abdomen she moved to the upper abdomen, though she cannot localize specific abdominal pain to me. Her Monospot was positive. On exam she does not have any significant tenderness.
1. Elevated LFTs: Initially with other associated symptoms and thrombocytopenia in a marked necroinflammatory pattern consistent with drug-induced liver injury from Depakote, now though with more cholestatic pattern with leukocytosis and
gallbladder wall thickening noted on CT scan. She does not have any significant tenderness, though by report she is not very reliable at times. Cholecystitis is still possible given her constellation of findings. She could have delayed intra
[place] cholestasis after significant drug-induced liver injury as well. Her Monospot was positive and she does have increased white count, though her monocytes were normal, and did have significant bands, though acute mono is also possible as well
as other viral infection. At this point we will await MRI. If still significant gallbladder wall thickening we will discuss again with surgery, may consider HIDA scan knowing that there could be falsely negative given hepatocyte inflammation.
Will await EBV serologies, acute hepatitis panel and continue to trend LFTs closely.
Original Note:
Consultation
-
Date/Time Consultation Requested: 11/03/24 4533
Date/Time Consultation Performed: 11/03/24 1030
Requesting Provider: Dr. Finch
Performing Provider: Dr. Vásquez/SUNITHA Barillas
Reason for Consultation: elevated LFTs
Medical History
Chief Complaint / HPI
Chief Complaint: elevated LFTs
History of Present Illness:
59-year-old female with past medical history of developmental delay from , uterine fibroids, ovarian cysts, hyperlipidemia, seizure activity that started with the onset of menstruation and last 1 being at the time of menopause maintained on
Depakote and Keppra followed by Dr. Garcia (neurology), only surgery was left wrist fracture repair who went to a routine neurological outpatient appointment on 10/16/2024 however family had noticed that the week prior she had become more loud and
aggressive. They felt that this was secondary to a change in her routine as her mother was not feeling well. Her neurologist noticed finger fasciculations on exam and therefore increased her Depakote. The family contacted him and told them that
they noticed that she started having a decreased appetite sleeping a lot and was only eating a couple bites of her food. She was also rubbing her abdomen. They state that she would only eat a couple bites and stay 'I am done'. At that point he
reduced the dose by a quarter. She started having more behavioral changes in the form of agitation and aggression at that point he referred her to the emergency room where she was admitted on 10/26/2024. She was found to have elevated LFTs,
thrombocytopenia and an elevated Depakote level. At that point she was removed from Keppra, Depakote and her statin. She was started on Briviact. Ultrasound of the abdomen at that time showed no evidence of biliary ductal dilatation. The
gallbladder was not thickened. There was no pericholecystic edema. Small gallstones were present. There was diffuse increased echogenicity of the liver with increased attenuation findings compatible with fatty liver. No focal lesions. Normal
directional flow of the main portal vein. LFTs at that time showed a total bilirubin 1.4, AST of 750, ALT of 738 and alk phos of 329 ammonia level was normal at 23. The following day total bilirubin was 1.7, improvement of AST at 485, ALT 599 and
alk phos of 291. They do state that she was complaining walking around holding her side. She was thinking that it was her hip. When she was here they x-rayed her left hip. The patient was sent home with outpatient LFT follow-up. The family states
that her behavior started to improve. She also started to get an improved appetite. She still would rub her abdomen a little. She did have outpatient labs and was told to come to the emergency room as she had worsening LFTs. We are asked to
evaluate for the same. When the patient arrived she had a leukocytosis of 15.3, hemoglobin 12.0, hematocrit 34.1, platelet count of 245 (up from 73), bands of 7, PT 13.0, INR 0.93, sodium 134, potassium 3.9, BUN 16, creatinine 0.7, glucose 100,
total bilirubin 6.5, AST 435, ALT 645, alk phos 829, ammonia 34, lipase 236, acetaminophen level less than 10, valproic acid less than 10, Monoscreen positive. Total bilirubin this morning 5.7 with direct of 4.7, AST 351, ALT 614, alk phos 741. She
had a CT of the abdomen and pelvis without contrast. The liver shows no focal liver masses. Attenuation is within normal limits. No filling defects seen within the opacified portal hepatic veins. Gallbladder shows multiple stones. There is
gallbladder wall thickening and gallbladder wall edema. No biliary ductal dilatation. No definite radiopaque stone seen within the common bile duct. Spleen within normal limits. The patient/family denies any fevers, chills, vomiting, melena,
hematochezia, dysphagia or odynophagia. Her appetite is improving. There has been no acholic stools that the family is aware of. No UA to evaluate bilirubinuria or UTI, the patient has no pain on palpation, she has no current abdominal
discomfort. The patient only takes Tylenol very sparingly given to her by her family. Only current medication is Briviact. No tattoos, piercings, IV drug use, ETOH, recent travel, no raw seafood/shellfish.
Past Medical History
Past Medical History: Other (developmental delay from , uterine fibroids, ovarian cysts, seizure, left wrist fracture)
Past Surgical History: Orthopedic (left wrist fracture repair)
Social History
Tobacco: Non-Smoker
Alcohol: None
Drug: None
Personal: Single
Living: With Family
Employment: Disabled
Family History
Family History: Other (Maternal grandmother with unknown cancer)
Allergies / Home Medications
Allergy/AdvReac Type Severity Reaction Status Date / Time
lorazepam (From Ativan) Allergy 'severe Verified 11/03/24 03:05
behavioral
changes'
�Medication �Instructions �Recorded
brivaracetam 100 mg tablet 100 mg PO BID 11/03/24
Review of Systems
-
All other systems: A 12 pt ROS was Negative except as stated above in HPI
Vital Signs
Temp Pulse Resp BP Pulse Ox
97.3 F 69 16 140/76 96
11/03/24 07:15 11/03/24 07:15 11/03/24 07:15 11/03/24 07:15 11/03/24 07:15
Physical Exam
Exam
General: No Apparent Distress
HEENT: Other (Sclera icteric)
Respiratory: Clear
Cardiac: Regular Rhythm
GI: Soft, Non Tender, Non Distended and Normal Bowel Sounds
Musculoskeletal: No Edema
Skin: Warm and Dry
Neuro: Awake, Alert and Oriented
Psych: Calm
Results
WBC 13.5 10^3/uL (4.8-10.8) H 11/03/24 05:40
Hgb 11.0 g/dL (12.0-16.0) L 11/03/24 05:40
Hct 32.8 % (37.0-47.0) L 11/03/24 05:40
MCV 84.8 fL (81.0-99.0) 11/03/24 05:40
Plt Count 261 10^3/uL (130-400) 11/03/24 05:40
PT 13.0 Sec (11.4-14.6) 11/02/24 22:31
INR 0.93 11/02/24 22:31
APTT 28.3 Sec (23.4-35.0) 11/02/24 22:31
Sodium 135 mmol/L (135-145) 11/03/24 05:40
Potassium 4.1 mmol/L (3.5-5.1) 11/03/24 05:40
Chloride 104 mmol/L (98-107) 11/03/24 05:40
Carbon Dioxide 26 mmol/L (22-30) 11/03/24 05:40
BUN 11 mg/dl (7-17) 11/03/24 05:40
Creatinine 0.7 mg/dL (0.6-1.0) 11/03/24 05:40
Calcium 8.6 mg/dl (8.4-10.2) 11/03/24 05:40
Total Bilirubin 5.7 mg/dl (0.2-1.3) H 11/03/24 05:40
AST 351 U/L (14-36) H 11/03/24 05:40
ALT 614 U/L (0-35) H* 11/03/24 05:40
Alkaline Phosphatase 741 U/L (38-126) H 11/03/24 05:40
Lipase 236 U/L (23-300) 11/03/24 00:00
Diagnostic Image Results:
US Abd:
IMPRESSION:
Cholelithiasis. No sonographic findings to suggest acute cholecystitis. No evidence for biliary ductal dilation.
Fatty infiltration of the liver.
CT Abd/Pelvis no contrast:
1. Multiple radiopaque gallstones within the gallbladder. Gallbladder wall thickening and gallbladder wall edema. Findings may be related to acute cholecystitis.
2. No significant biliary ductal dilation. No radiopaque stones are appreciated within the common bile duct. As the patient's total bilirubin is elevated, consider MRCP to better evaluate for choledocholithiasis.
3. Trace pelvic free fluid, which may be physiologic.
Prior GI Procedures:
EGD: Never
Colonoscopy: Never
Assessment / Plan
-
59-year-old female with past medical history of developmental delay from , uterine fibroids, ovarian cysts, hyperlipidemia, seizure disorder with Recent increase in Depakote dose on 10/16/2024 secondary to change in behavior as well as finger
fasciculations seen by primary neurologist. Started to become somnolent, decreased appetite, complained of abdominal discomfort and was sent to the emergency room on 10/26/2024 found to have elevated LFTs thought to be secondary to Depakote. She
had elevated Depakote level at that time. Depakote, Keppra and statin were discontinued. She was sent home. Had improvement of appetite and behavior. Outpatient labs obtained that showed worsening of LFTs and sent back to the emergency room for
further evaluation. We were asked to evaluate for the same.Only medication at this time is Briviact. The patient did have a positive mono screen on 10/26/2024. There is no ductal dilatation seen on CT or ultrasound. She has no current abdominal
pain however does have a leukocytosis with bandemia. She does have a very mildly elevated ammonia. Negligible with normal bowel movements. Her mentation seems to be improved and normal to her family. She did have left sided abdominal/hip
discomfort requiring an x-ray that was negative last week. Will obtain MRI/MRCP to evaluate given mostly direct hyperbilirubinemia and elevated LFTs. She does have cholelithiasis. Surgery is also following.
Impression:
Elevated LFTs
Cholelithiasis
Positive Monospot
Plan:
-Await MRCP
-Check Acute Hepatitis panel
-Check EBV studies with positive Monoscreen
-Trend CBC, LFTs
-Recommend UA with bandemia, was given dose of Zosyn
-Surgery following
-Further recommendations to be forthcoming
-
-
Thank you for consultation and allowing me to participate in the patient's care. Please call the compliance and control analyst GI physician during the after hours with any questions or concerns.
--- NOTE | 2024-11-03 12:21 | W.PN.HOSP.TC ---
Today's Communication/Plan
-
see outlined plan below
Assessment / Plan
Assessment / Plan
Assessment:
Elevated LFTS
- initially possibly related to Depakote toxicity but noted increase in LFTs despite Depakote cessation by OP neurologist. Tylenol and Statin were also stopped.
- Elevated T.bili - will have to evaluate for choledocho vs other HB pathology vs DILI vs other
- GI and GS consulted
- NPO pending MRCP study; Valium ordered for anxiety
- hepatitis panel
- IVF
- empiric IV Zosyn
- pain control, anti-emetics
- follow LFTs
Elevated Ammonia level
- monitor mentation
Hx of Seizure disorder
Hx of intellectual disability
- continue brivaracetam
DVT ppx: Lovenox
Code: Full
Anticipated Discharge: > 48 hours
Subjective/Interval History
-
Date of Service: November 03, 2024
denies any new complaints at present
Objective Data
-
Labs:
Laboratory Results
11/03/24 11/03/24
00:00 05:40
WBC 13.5 H
Hgb 11.0 L
Hct 32.8 L
Plt Count 261
Sodium 134 L 135
Potassium 3.9 4.1
Chloride 102 104
Carbon Dioxide 27 26
BUN 16 11
Creatinine 0.7 0.7
Glucose 100 H 115 H
Calcium 8.6 8.6
Total Bilirubin 6.5 H 5.7 H
AST 435 H 351 H
ALT 645 H* 614 H*
Alkaline Phosphatase 829 H 741 H
Vital Signs:
Vital Signs
Temp Pulse Resp BP Pulse Ox
97.3 F 69 16 140/76 96
11/03/24 07:15 11/03/24 07:15 11/03/24 07:15 11/03/24 07:15 11/03/24 07:15
Physical Exam
-
General: No Apparent Distress
HEENT: Normocephalic and Atraumatic
Respiratory: Clear to Auscultation; Negative Wheezes
Cardiac: Regular Rhythm and S1/S2
GI: Soft
Genito-urinary: No Costovertebral Tender
Musculoskeletal: No Edema
Neuro: AO x 3
Psych: Calm
Data Reviewed
-
Total Time Spent with Patient (in minutes): 44
Labs: Labs Reviewed by me
--- NOTE | 2024-11-03 12:35 | PTCARENOTE ---
Patient brought for MRCP at 1100 (STAT Valium 2mg IV given at 10:55); pt returned to the floor at 12:35; vital signs stable.
[2024-11-03] MEDS: ZOSYN 50 IV ×3 (12:52→19:20)
[2024-11-03 14:02] LABS: Hepatitis B Surface Antigen Negative (Negative)
[2024-11-03 14:20] LABS: Hepatitis C Antibody Negative (Negative)
[2024-11-03 14:30] LABS: Urine Character Clear (Clear)
--- NOTE | 2024-11-03 16:11 | W.SUR.PREOP ---
Pre-Operative Surgical Note
-
I have examined this patient prior to the performance of the scheduled procedure.
The patient's condition is unchanged from the time of the current History and
Physical and the patient is able to undergo the scheduled procedure.
--- NOTE | 2024-11-03 18:38 | W.IMMPOSTOP ---
Surgical Immed Post Op Note
-
Primary Surgeon: Elli
Assisting Surgeon: ABAD Rosales
Pre-op Diagnosis: Cholecystitis
Post-op Diagnosis: Cholecystitis
Procedure Performed: Laparoscopic cholecystectomy with IOC
Anesthesia Type: General
Specimen / Cultures:
1. Gallbladder
Estimated Blood Loss: 3 cc
Complications: None
Operative Findings:
1. Dilated, inflamed GB, mild wall thickening, edema, bilious tissues
2. Critical view, IOC negative
3. Duct clips and Endoloop, artery clips
--- NOTE | 2024-11-03 20:15 | PTCARENOTE ---
pt arrived via bed from PACU @ 1945. Surgical incisions checked @ bedside w FOAM TANK LAMINATOR. Pt very drowsy, arousable to verbal stimuli, 2L o2 via nasal cannula; VSS; resting comfortably; care ongoing.
[2024-11-03] MEDS: LOVENOX SC (21:55)
[2024-11-04] MEDS: D5/0.9% SODIUM CHLORIDE 1000 IV (01:32)
[2024-11-04] MEDS: ZOSYN 50 IV ×4 (01:32→19:28)
[2024-11-04 01:35] VITALS: BP 146/78
[2024-11-04 02:55] VITALS: BP 143/72
[2024-11-04 06:23] LABS: Hematocrit 35.7 % (37.0-47.0); Hemoglobin 12.0 g/dL (12.0-16.0); Mean Corp Hgb Conc. 33.6 g/dL (33.0-37.0); Mean Corpuscular Volume 84.8 fL (81.0-99.0); Platelet Count 285 10^3/uL (130-400); Red Cell Dist. Width 16.1 % (11.5-14.5)
[2024-11-04 06:50] LABS: ALT (SGPT) 536 U/L (0-35); AST (SGOT) 248 U/L (14-36); Albumin 3.6 g/dl (3.5-5.0); Alkaline Phosphatase 767 U/L (38-126); Blood Urea Nitrogen 11 mg/dl (7-17); Calcium 8.3 mg/dl (8.4-10.2); Carbon Dioxide 23 mmol/L (22-30); Chloride 106 mmol/L (98-107); Estimated Creatinine Clearance 92 ml/min; Glucose 171 mg/dl (70-99); Potassium 4.9 mmol/L (3.5-5.1); Sodium 137 mmol/L (135-145); Total Protein 7.1 g/dl (6.3-8.2); eGFR > 60.00
[2024-11-04 07:20] VITALS: BP 139/78
--- NOTE | 2024-11-04 07:51 | W.PN.GI.CBS2 ---
Today's Communication / Plan
-
Please see assessment and plan for details.
Assessment / Plan
-
1. Elevated LFTs: Likely previous admission from drug-induced liver injury given constellation of symptoms, though now likely some component of cholecystitis given imaging and leukocytosis. She is feeling better postoperatively and labs overall
are improved. Other etiologies including delayed intrahepatic cholestasis after drug-induced liver injury, viral hepatitis etc. are still possible though do seem less likely. At this point we will continue postoperative care per surgery, await
labs as ordered and continue to trend LFTs and INR.
Subjective
Subjective
Date of Service: November 04, 2024
Patient feeling much better overall, slept well last night, no complaints per family. No fevers or chills overnight.
Objective
Data Reviewed
Laboratory Data:
Laboratory Results
11/04/24 05:49
11/04/24 05:49
Laboratory Results
PT 13.0 Sec (11.4-14.6) 11/02/24 22:31
INR 0.93 11/02/24 22:31
APTT 28.3 Sec (23.4-35.0) 11/02/24 22:31
Magnesium 2.0 mg/dl (1.6-2.3) 11/03/24 05:40
Total Bilirubin 4.0 mg/dl (0.2-1.3) H 11/04/24 05:49
AST 248 U/L (14-36) H 11/04/24 05:49
ALT 536 U/L (0-35) H* 11/04/24 05:49
Alkaline Phosphatase 767 U/L (38-126) H 11/04/24 05:49
Lipase 236 U/L (23-300) 11/03/24 00:00
Vital Signs and I&O:
Vital Signs
Temp Pulse Resp BP Pulse Ox
97.6 F 69 16 143/72 99
11/04/24 02:55 11/04/24 02:55 11/04/24 02:55 11/04/24 02:55 11/04/24 02:55
I&O
11/03/24 11/04/24 11/05/24
06:59 06:59 06:59
Intake Total 1350 / 1350
Output Total 180 / 180
Balance 1170 / 1170
Physical Exam
Physical Exam
General: NAD
Abdomen: normal bowel sounds, soft, no tenderness, no masses or bruits, no ascites, surgical sites without erythema or exudate
[2024-11-04] MEDS: BRIVIACT 100 MG PO ×2 (08:34→19:27)
[2024-11-04 08:50] LABS: Absolute Neutrophils -Man Diff 3.5 10^3/uL (1.4-6.5)
[2024-11-04 08:53] LABS: Anisocytosis Slight; Hypochromasia Slight; Normal RBC Morphology No; Platelets Checked Yes; Polychromasia Slight; Stomatocytes Slight; Target Cells Slight; Total Cells Counted 100
[2024-11-04] MEDS: D5/0.9% SODIUM CHLORIDE IV (09:42)
--- NOTE | 2024-11-04 11:43 | W.PN.GS2 ---
Addendum entered and electronically signed by Jamal Calloway MD 11/04/24 12:17:
Patient seen and examined.
No complaints. Feels better. Denies any nausea or vomiting. No BM. Afebrile.
Gen: NAD
Abd: soft, mild tenderness, ND/obese, non-peritoneal, incisions c/d/i - no erythema, ecchymosis or drainage
59 yo F with intellectual disability presenting for rising LFT's and behavioral changes with c/o abdominal pain with cholecystitis on imaging now POD #1 lap tomer with normal IOC
AFVSS
LFT's trending down
Mild rise in leukocytosis, reactive
Plan:
-- Regular diet
-- Home meds
-- Pain control: Toradol, Oxycodone
-- No need for further abx
-- Ok for d/c from surgical standpoint, we will follow LFT trend as OP
-- DC instructions updated
D/W hospitalist
Original Note:
Today's Communication / Plan
-
dispo planning
Assessment / Plan
-
59 yo female with intellectual disability presenting for rising LFT's and behavioral changes with c/o abdominal pain with cholecystitis on imaging now POD #1 lap tomer with normal IOC
AFVSS
LFT's trending down
Mild rise in leukocytosis, reactive
Plan:
Ok for regular diet
c/w home meds
Analgesics prn
No need for further abx
Ok for d/c from surgical standpoint, we will follow LFT trend as OP
D/W hospitalist
Subjective Data
-
Date of Service: November 04, 2024
Pt seen and examined at bedside with Dr. Calloway. Brother present and updated. Denies n/v. OOB to chair. Tolerating diet. No BM today.
Objective Data
-
Intake and Output
11/03/24 11/04/24 11/05/24
06:59 06:59 06:59
Intake Total 1350 / 1350
Output Total 180 / 180
Balance 1170 / 1170
Intake:
IV fluids (Total) 1300 / 1300
normosol 100 / 100
IV piggybacks 50 / 50
Output:
Urine, Voided 180 / 180
Other:
Number of approximated SMALL 1
amounts of urine
Number of approximated MODERATE 2
amounts of urine
Number of approximated LARGE 1
amounts of urine
How many times incontinent 2
SATURATED amount urine
Vital Signs
Temp Pulse Resp BP Pulse Ox
98.4 F 76 16 139/78 97
11/04/24 07:20 11/04/24 07:20 11/04/24 07:20 11/04/24 07:20 11/04/24 07:20
Lab Results
11/04/24 05:49
11/04/24 05:49
Calcium 8.3 mg/dl (8.4-10.2) L 11/04/24 05:49
Magnesium 2.0 mg/dl (1.6-2.3) 11/03/24 05:40
Total Bilirubin 4.0 mg/dl (0.2-1.3) H 11/04/24 05:49
Direct Bilirubin 3.4 mg/dl (0.0-0.4) H 11/04/24 05:49
AST 248 U/L (14-36) H 11/04/24 05:49
ALT 536 U/L (0-35) H* 11/04/24 05:49
Alkaline Phosphatase 767 U/L (38-126) H 11/04/24 05:49
Total Protein 7.1 g/dl (6.3-8.2) 11/04/24 05:49
Albumin 3.6 g/dl (3.5-5.0) 11/04/24 05:49
Physical Exam
-
NAD
ABD soft, mild incisional tenderness, nd
Incisions well approximated, intact glue
Patient has a rodriguez catheter: No
Patient has a central line: No
--- NOTE | 2024-11-04 12:03 | W.PN.HOSP.TC ---
Today's Communication/Plan
-
post-op care, pain control, follow diet tolerance, repeat AM LFTs
Assessment / Plan
Assessment / Plan
Assessment:
Elevated LFTS
- initially possibly related to Depakote toxicity but noted increase in LFTs despite Depakote cessation by OP neurologist. Tylenol and Statin were also stopped.
- Elevated T.bili
- MRCP with SEVERE DIFFUSE GALLBLADDER WALL THICKENING and SUBMUCOSAL EDEMA.
- GS following, s/p lap tomer 11/03
- low fat diet
- monitor pain tolerance
- Follow LFTs
- no further Abx per GS
Elevated Ammonia level
- monitor mentation
Hx of Seizure disorder
Hx of intellectual disability
- continue brivaracetam
DVT ppx: Lovenox
Code: Full
Anticipated Discharge: Within 24 hours
Subjective/Interval History
-
Date of Service: November 04, 2024
s/p lap tomer
pain controlled
LFTs improving
Objective Data
-
Labs:
Laboratory Results
11/04/24
05:49
WBC 14.2 H
Hgb 12.0
Hct 35.7 L
Plt Count 285
Sodium 137
Potassium 4.9
Chloride 106
Carbon Dioxide 23
BUN 11
Creatinine 0.7
Glucose 171 H
Calcium 8.3 L
Total Bilirubin 4.0 H
AST 248 H
ALT 536 H*
Alkaline Phosphatase 767 H
Vital Signs:
Vital Signs
Temp Pulse Resp BP Pulse Ox
98.4 F 76 16 139/78 97
11/04/24 07:20 11/04/24 07:20 11/04/24 07:20 11/04/24 07:20 11/04/24 07:20
I&O
11/03/24 11/04/24 11/05/24
06:59 06:59 06:59
Intake Total 1350 / 1350
Output Total 180 / 180
Balance 1170 / 1170
Physical Exam
-
General: No Apparent Distress
HEENT: Normocephalic and Atraumatic
Respiratory: Negative Wheezes
Cardiac: Regular Rhythm and S1/S2
GI: Soft
Neuro: AO x 3
Psych: Calm
Data Reviewed
-
Total Time Spent with Patient (in minutes): 41
Labs: Labs Reviewed by me
[2024-11-04 12:15] VITALS: BP 132/99
[2024-11-04] MEDS: TORADOL 10 MG IV (13:48)
[2024-11-04 15:10] VITALS: BP 135/73
[2024-11-04] MEDS: LOVENOX 40 MG SC (17:46)
[2024-11-04 22:33] VITALS: BP 136/73
[2024-11-04] MEDS: SENOKOT 8.6 MG PO (22:55)
[2024-11-05] MEDS: ZOSYN 50 IV ×2 (01:50→08:58)
[2024-11-05] MEDS: TORADOL 10 MG IV ×2 (04:25→12:41)
[2024-11-05 06:02] LABS: INR 0.95; PT 12.9 Sec (11.4-14.6)
[2024-11-05 06:06] LABS: Hematocrit 32.7 % (37.0-47.0); Hemoglobin 11.3 g/dL (12.0-16.0); Mean Corp Hgb Conc. 34.6 g/dL (33.0-37.0); Mean Corpuscular Volume 82.4 fL (81.0-99.0); Platelet Count 306 10^3/uL (130-400); Red Cell Dist. Width 16.2 % (11.5-14.5)
[2024-11-05 06:25] LABS: ALT (SGPT) 429 U/L (0-35); AST (SGOT) 208 U/L (14-36); Albumin 3.5 g/dl (3.5-5.0); Alkaline Phosphatase 696 U/L (38-126); Blood Urea Nitrogen 14 mg/dl (7-17); Calcium 8.5 mg/dl (8.4-10.2); Carbon Dioxide 23 mmol/L (22-30); Chloride 106 mmol/L (98-107); Estimated Creatinine Clearance 80 ml/min; Glucose 122 mg/dl (70-99); Potassium 4.4 mmol/L (3.5-5.1); Sodium 135 mmol/L (135-145); Total Protein 6.8 g/dl (6.3-8.2); eGFR > 60.00
[2024-11-05 07:41] LABS: EBV-EA (D) Ab IgG 61.3 U/mL (<=8.9); EBV-NA IgG <3.0 U/mL (<=17.9); EBV-VCA IgG Antibodies 33.7 U/mL (<=17.9); EBV-VCA IgM Antibodies 49.0 U/mL (<=35.9)
[2024-11-05 07:43] VITALS: BP 94/76
--- NOTE | 2024-11-05 08:11 | W.PN.GI.CBS2 ---
Today's Communication / Plan
-
Please see assessment and plan for details.
Assessment / Plan
-
1. Elevated LFTs: Likely multifactorial, with some component of cholecystitis, possible drug-induced liver injury from previous admission, also probably some component of EBV given her serologies. All LFTs continue to improve and she is feeling
well. She is okay to DC from a GI standpoint, would repeat LFTs with her PCP in 2 weeks and continue to trend to normal, though we will hold on further GI workup for now.
We will sign off for now, please call back with any further questions.
Subjective
Subjective
Date of Service: November 05, 2024
Patient feeling well, ate well with no difficulties last night, no significant abdominal pain, nausea, vomiting, fever or chills. Some tenderness when moving, though otherwise has been feeling well.
Objective
Data Reviewed
Laboratory Data:
Laboratory Results
11/05/24 04:34
11/05/24 04:34
Laboratory Results
PT 12.9 Sec (11.4-14.6) 11/05/24 04:34
INR 0.95 11/05/24 04:34
APTT 28.3 Sec (23.4-35.0) 11/02/24 22:31
Magnesium 2.0 mg/dl (1.6-2.3) 11/03/24 05:40
Total Bilirubin 2.9 mg/dl (0.2-1.3) H 11/05/24 04:34
AST 208 U/L (14-36) H 11/05/24 04:34
ALT 429 U/L (0-35) H 11/05/24 04:34
Alkaline Phosphatase 696 U/L (38-126) H 11/05/24 04:34
Lipase 236 U/L (23-300) 11/03/24 00:00
Vital Signs and I&O:
Vital Signs
Temp Pulse Resp BP Pulse Ox
98.0 F 78 16 94/76 96
11/05/24 07:43 11/05/24 07:43 11/05/24 07:43 11/05/24 07:43 11/05/24 07:43
I&O
11/04/24 11/05/24 11/06/24
06:59 06:59 06:59
Intake Total 1350 / 1350 1385 / 1385
Output Total 180 / 180
Balance 1170 / 1170 1385 / 1385
Physical Exam
Physical Exam
General: NAD
Abdomen: normal bowel sounds, soft, no tenderness, no masses or bruits, no ascites
[2024-11-05] MEDS: BRIVIACT 100 MG PO (08:58)
[2024-11-05] MEDS: MIRALAX 17 GRAMS PO (09:08)
--- NOTE | 2024-11-05 10:57 | W.PN.GS2 ---
Addendum entered and electronically signed by Jamal Calloway MD 11/05/24 11:01:
Patient seen and examined. Agree with assessment plan as documented below.
Original Note:
Today's Communication / Plan
-
Dispo planning
Assessment / Plan
-
59 yo female with intellectual disability presenting for rising LFT's and behavioral changes with c/o abdominal pain with cholecystitis on imaging now POD #2 lap tomer with normal IOC
AFVSS
LFT's continue trending down
Leukocytosis improved
Plan:
Ok for regular diet
c/w home meds
Analgesics prn
No need for further abx
Ok for d/c from surgical standpoint, we will follow LFT trend as OP
Subjective Data
-
Date of Service: November 05, 2024
Pt seen and examined at bedside with Dr. Calloway. Denies n/v. Tolerating diet. OOB to chair. Some soreness with movement per family. Doing well overall.
Objective Data
-
Intake and Output
11/04/24 11/05/24 11/06/24
06:59 06:59 06:59
Intake Total 1350 / 1350 1385 / 1385
Output Total 180 / 180
Balance 1170 / 1170 1385 / 1385
Intake:
Oral fluids 960 / 960
IV fluids (Total) 1300 / 1300 225 / 225
normosol 100 / 100
IV piggybacks 50 / 50 200 / 200
Output:
Urine, Voided 180 / 180
Other:
Number of approximated SMALL 1
amounts of urine
Number of approximated MODERATE 2 2
amounts of urine
Number of approximated LARGE 1
amounts of urine
How many times incontinent 2
SATURATED amount urine
Vital Signs
Temp Pulse Resp BP Pulse Ox
98.0 F 78 16 94/76 96
11/05/24 07:43 11/05/24 07:43 11/05/24 07:43 11/05/24 07:43 11/05/24 07:43
Lab Results
11/05/24 04:34
11/05/24 04:34
Calcium 8.5 mg/dl (8.4-10.2) 11/05/24 04:34
Magnesium 2.0 mg/dl (1.6-2.3) 11/03/24 05:40
Total Bilirubin 2.9 mg/dl (0.2-1.3) H 11/05/24 04:34
Direct Bilirubin 2.3 mg/dl (0.0-0.4) H 11/05/24 04:34
AST 208 U/L (14-36) H 11/05/24 04:34
ALT 429 U/L (0-35) H 11/05/24 04:34
Alkaline Phosphatase 696 U/L (38-126) H 11/05/24 04:34
Total Protein 6.8 g/dl (6.3-8.2) 11/05/24 04:34
Albumin 3.5 g/dl (3.5-5.0) 11/05/24 04:34
Physical Exam
-
NAD
ABD soft, mild incisional tenderness, nd
Incisions well approximated, intact glue
Patient has a rodriguez catheter: No
Patient has a central line: No
--- NOTE | 2024-11-05 11:59 | W.PN.HOSP.TC ---
Today's Communication/Plan
-
dc to home/vn
Assessment / Plan
Assessment / Plan
Assessment:
Elevated LFTS
- initially possibly related to Depakote toxicity but noted increase in LFTs despite Depakote cessation by OP neurologist. Tylenol and Statin were also stopped.
- Elevated T.bili
- MRCP with SEVERE DIFFUSE GALLBLADDER WALL THICKENING and SUBMUCOSAL EDEMA.
- GS following, s/p lap tomer 11/03
- low fat diet
- pain control
- Follow LFTs - repeat outpatient this week
- OP GS f/u in 10-14 days
Elevated Ammonia level
- monitor mentation
Hx of Seizure disorder
Hx of intellectual disability
- continue brivaracetam
DVT ppx: Lovenox
Code: Full
More than 30 minutes spent in discharge including
Final examination of the patient
Summarizing hospital stay
Instructions for continuing care to all relevant caregivers
Preparation of discharge records, prescriptions, and referral forms
Total time spent (in minutes): 41
Anticipated Discharge: Today
Subjective/Interval History
-
Date of Service: November 05, 2024
resting comfortably, no complaints
Objective Data
-
Labs:
Laboratory Results
11/05/24
04:34
WBC 12.9 H
Hgb 11.3 L
Hct 32.7 L
Plt Count 306
PT 12.9
INR 0.95
Sodium 135
Potassium 4.4
Chloride 106
Carbon Dioxide 23
BUN 14
Creatinine 0.8
Glucose 122 H
Calcium 8.5
Total Bilirubin 2.9 H
AST 208 H
ALT 429 H
Alkaline Phosphatase 696 H
Vital Signs:
Vital Signs
Temp Pulse Resp BP Pulse Ox
98.0 F 78 16 94/76 96
11/05/24 07:43 11/05/24 07:43 11/05/24 07:43 11/05/24 07:43 11/05/24 07:43
I&O
11/04/24 11/05/24 11/06/24
06:59 06:59 06:59
Intake Total 1350 / 1350 1385 / 1385
Output Total 180 / 180
Balance 1170 / 1170 1385 / 1385
Physical Exam
-
General: No Apparent Distress
HEENT: Normocephalic and Atraumatic
Respiratory: Negative Wheezes
Cardiac: Regular Rhythm and S1/S2
GI: Soft and Nontender
Neuro: AO x 3
Psych: Calm
Data Reviewed
-
Total Time Spent with Patient (in minutes): 42
Labs: Labs Reviewed by me
--- NOTE | 2024-11-05 12:01 | W.DCSUMMARY ---
Discharge Summary
Discharge Data
Date of Admission: 11/03/24
Date of Discharge: 11/05/24
-
Pending Results: No
Hospital Course
59 y/o F prsented to hospital on 11/03 with recently elevated LFTs outpatient which was attributed initially to tylenol/statin and depakote. Her depakote was switched to brivaracetam. She presented back with worsening LFTs and MRI evidence of acute
cholecystitis. She underwent lap tomer on 11/03 and post-operatively did well with tolerance of diet and pain controlled. She was cleared for discharge by Surgery and GI. She will have repeat labs in 1 week and follow up with general surgery. Patient
was discharged with improving LFTs. She was discharged home with VN on 11/05/24.
Discharge Plan
-
Patient Disposition: Home with Home Care
Discharge Diagnosis/Procedures: acute on chronic cholecystitis, s/p lap tomer 11/03
Condition: Fair
Diet: Low Fat
Additional Diets: If you have loose stools after surgery, switch to a low fat diet
Activity: No strenuous activity
Additional Activity: Do not lift over 20lbs
Bathing Restrictions: OK to Shower
Others Tests: LFT's in one week
Wound Care: Allow the glue to flake off your incisions on its own over the next 2 weeks. No swimming or soaking in tubs/pools until incisions healted.
Activity Restrictions/Additional Instructions:
Call your surgeon if you have fever >100.5, nausea with vomiting or worsening abdominal pain
Referrals:
Ira Grayson PA [Family Provider, Family Practice] - in one week
Jamal Calloway MD [Active, Surgical] - in two to four weeks
Additional Discharge Medication Instructions: May use Motrin for mild pain (avoid Tylenol with recovering liver numbers)
Prescriptions:
New
oxycodone 5 mg Tablet
5 mg PO Q4HPRN PRN (Reason: moderate pain) Qty: 10 0RF
ondansetron HCl 4 mg tablet
4 mg PO Q8H PRN (Reason: nausea and vomiting) Qty: 10 0RF
Continued
brivaracetam 100 mg Tablet
100 mg PO BID
Discharge Orders:
Discharge Patient (As Directed); Ordered 11/05/24
Ordered By: Huy Genao
Discharge Date and Time
Print Language: NEPALI
[2024-11-05 13:04] VITALS: BP 100/77
== END 2024-11-05 13:26 | disposition home health service (06) | DRG 419 ==
LOC: 2 SOUTH 03:04
PROVIDERS: Nurse Practitioner; Physician Assistant Medical; Radiology Diagnostic Radiology; ADMITTING PHYSICIAN Internal Medicine; ATTENDING PHYSICIAN Internal Medicine; CONSULT PHYSICIAN Internal Medicine Gastroenterology; CONSULT PHYSICIAN Surgery; EMERGENCY PHYSICIAN Student in an Organized Health Care Education/Training Program; FAMILY PHYSICIAN Physician Assistant
PROC: 0FT44ZZ Resection of Gallbladder, Percutaneous Endoscopic Approach (ICD-10-PCS; 2024-11-03)
PROC: BF131ZZ Fluoroscopy of Gallbladder and Bile Ducts using Low Osmolar Contrast (ICD-10-PCS; 2024-11-03)
DX: K80.66 Calculus of gallbladder and bile duct with acute and chronic cholecystitis without obstruction (principal); K71.8 Toxic liver disease with other disorders of liver; T42.6X5A Adverse effect of other antiepileptic and sedative-hypnotic drugs, initial encounter; G40.909 Epilepsy, unspecified, not intractable, without status epilepticus; R62.50 Unspecified lack of expected normal physiological development in childhood; K76.0 Fatty (change of) liver, not elsewhere classified; F81.9 Developmental disorder of scholastic skills, unspecified; E78.5 Hyperlipidemia, unspecified; D69.6 Thrombocytopenia, unspecified; K66.0 Peritoneal adhesions (postprocedural) (postinfection); E66.9 Obesity, unspecified; F79 Unspecified intellectual disabilities; D72.825 Bandemia; Y92.9 Unspecified place or not applicable; Z68.28 Body mass index [BMI] 28.0-28.9, adult; Z88.8 Allergy status to other drugs, medicaments and biological substances
CPT/HCPCS: 74177; 74181; 74300; 76000; 80053; 80143; 80164; 81003; 82140; 82248; 83690; 83735; 85025; 85027; 85610; 85730; 86663; 86664; 86665; 86705; 86706; 86709; 86803; 87340; 88304; 96361; 96365; 96366; 96367; 99285; A4300; Q9967

== ENCOUNTER 2024-11-29 17:40 | Emergency (ER) | payer OTHER, SELFPAY ==
[2024-11-29 17:51] VITALS: BP 142/90
[2024-11-29 18:34] LABS: Hematocrit 40.2 % (37.0-47.0); Hemoglobin 13.5 g/dL (12.0-16.0); Mean Corp Hgb Conc. 33.6 g/dL (33.0-37.0); Mean Corpuscular Volume 85.0 fL (81.0-99.0); Nucleated Red Blood Cells % 0 %; Platelet Count 359 10^3/uL (130-400); Red Cell Dist. Width 14.4 % (11.5-14.5)
[2024-11-29 18:46] LABS: ALT (SGPT) 76 U/L (0-35); AST (SGOT) 40 U/L (14-36); Albumin 5.0 g/dl (3.5-5.0); Alkaline Phosphatase 228 U/L (38-126); Blood Urea Nitrogen 13 mg/dl (7-17); Calcium 10.1 mg/dl (8.4-10.2); Carbon Dioxide 23 mmol/L (22-30); Chloride 103 mmol/L (98-107); Glucose 144 mg/dl (70-99); Lipase 103 U/L (23-300); Potassium 4.0 mmol/L (3.5-5.1); Sodium 136 mmol/L (135-145); Total Protein 8.7 g/dl (6.3-8.2); eGFR > 60.00
--- NOTE | 2024-11-29 22:00 | ED.GENMED ---
History of Present Illness
General
Chief Complaint: Change in Mental Status
Source: family (sister)
Time Seen by Provider: 11/29/24 21:21
History of Present Illness
History of Present Illness:
59-year-old female with history of developmental delay cognitive impairment presents to the emergency room for evaluation of periods of increased agitation and periods of being more lethargic. Currently the patient is at her baseline. She had been
on Depakote for quite a long time. This was primarily prescribed for seizure disorder but it also helped with her mood. This was discontinued due to elevated liver enzymes. Ultimately her elevated liver enzymes were determined to be related to
cholecystitis and she had a cholecystectomy. However her Depakote was not restarted at this point. She is currently taking brivaracetam as an antiepileptic. Patient offers no complaints at this time.
Past History
Past History
ED Past Medical History: Seizures (last 2014), Other (minimal brain development from ) and Other (Uterine fibroids, ovarian cysts)
Social History
Tobacco: Non-smoker
Alcohol: None
Drug: None
Personal: Single
Living: with family
Phy Exam
Physical Exam
Physical Exam:
General: Awake, Alert, Oriented X2. No acute distress.
Vitals: unremarkable
Head: Atraumatic
Eyes: Pupils equal, EOMI
Throat: Airway intact, no exudates
Neck: Trachea midline
Lungs: Clear and equal b/l
Heart: Regular rate, no murmurs
Abd: Soft, Nontender, No pulsatile mass
Neuro: Nonfocal
Skin: Warm, dry, no rash
Extremities: pulses equal b/l, no edema
Course
Orders/Labs/Results
Orders:
Orders
11/29/24 18:09
Complete Blood Count/With Diff Urgent
Comprehensive Metabolic Panel Urgent
Lipase Urgent
Abnormal Lab Results
11/29/24
18:09
Absolute Monos (auto) 0.9 H 10^3/uL
(0.1-0.6)
Monocytes % 9.9 H %
(1.7-9.3)
Glucose 144 H mg/dl
(70-99)
AST 40 H U/L
(14-36)
ALT 76 H U/L
(0-35)
Alkaline Phosphatase 228 H U/L
(38-126)
Total Protein 8.7 H g/dl
(6.3-8.2)
11/29/24 18:09
11/29/24 18:09
Vital Signs
Initial and Last Documented VS:
Initial Vital Signs
Temp Pulse Resp BP Pulse Ox
98.2 F 100 16 142/90 99
11/29/24 17:51 11/29/24 17:51 11/29/24 17:51 11/29/24 17:51 11/29/24 17:51
Last Documented Vital Signs
Temp Pulse Resp BP Pulse Ox
98.5 F 100 16 142/90 99
11/29/24 18:00 11/29/24 17:51 11/29/24 17:51 11/29/24 17:51 11/29/24 22:01
MDM/Problems Addressed
Differential Diagnosis Includes:
Mood changes due to the discontinuation of Depakote. Electrolyte abnormality,
MDM/Problems Addressed:
Patient brought for evaluation because she was less active through the day. She is back to her baseline now. Workup reveals no evidence of an unstable process. Her LFTs are elevated but have trended down significantly from their high. No
evidence for an unstable process requiring hospitalization. Recommend outpatient follow-up with neurology and primary care
*Pulse Oximetry
SaO2: 99
Oxygen Mode of Delivery: Room air
Patient hypoxic: no
*Critical Care Note
Total Time (30-74mins, 75-104mins- exclusive of procedures): Not Applicable
ED Attending Note
-
Portions of this chart may have been created with voice recognition software.� Occasional wrong word or��sound alike� substitutions may have occurred due to the inherent limitations of voice recognition software.
Discharge Plan
Departure
Patient Disposition: Home (Routine Discharge)
Date of Disposition: 11/29/24
Time of Disposition: 22:00
Patient with high blood pressure during this ER visit?: Yes
Condition: Good
Discharge Problem:
Mood changes
Instructions: Altered Mental Status (DC), BLOOD PRESSURE
Prescriptions:
No Action
oxycodone 5 mg Tablet
5 mg PO Q4HPRN PRN (Reason: moderate pain) Qty: 10 0RF
ondansetron HCl 4 mg tablet
4 mg PO Q8H PRN (Reason: nausea and vomiting) Qty: 10 0RF
brivaracetam 100 mg Tablet
100 mg PO BID Qty: 60 0RF
Referrals:
Lizett Tony MD [Family Provider, Family Practice]
Activity Restrictions/Additional Instructions:
Discuss starting medications for mood stabilization. Follow-up with your primary care doctor Dr. Jenkins as an outpatient
Interventions
Interventions:
*Risk Screen - Suicide Last Done: 11/29/24 18:00
*General Assessment Last Done: 11/29/24 18:00
*Neglect/Abuse Screening Last Done: 11/29/24 18:00
*ED- Fall Risk Assessment Last Done: 11/29/24 18:00
*ED COVID-19 Vaccine History Last Done: 11/29/24 18:00
*Nursing Disposition Last Done: 11/29/24 22:18
ED-Psychological Assessment Last Done: 11/29/24 20:15
Discharge Date and Time
Discharge Date/Time: 11/29/24 22:19
Print Language: ITALIAN
== END 2024-11-29 22:19 | disposition home or self-care (01) ==
LOC: EMR 17:40
PROVIDERS: Student in an Organized Health Care Education/Training Program; EMERGENCY PHYSICIAN Emergency Medicine; FAMILY PHYSICIAN Family Medicine
DX: R41.82 Altered mental status, unspecified (principal); R79.89 Other specified abnormal findings of blood chemistry; R03.0 Elevated blood-pressure reading, without diagnosis of hypertension; G40.909 Epilepsy, unspecified, not intractable, without status epilepticus
CPT/HCPCS: 99283; 80053; 83690; 85025